=== PATIENT | male | born 1940 | race Caucasian/White ===

== ENCOUNTER 2017-04-27 06:13 | Inpatient (IN) | payer OTHER ==
[2017-04-18 15:35] VITALS: BMI 27.1
[~2017-04-27 06:13] MED LIST: PANTOPRAZOLE 40 MG TABLET (FP) PO ONE
[2017-04-27] MEDS ORDERED: GABAPENTIN 300 MG CAPSULE (FP) PO ONE (06:34)
[2017-04-27] MEDS ORDERED: CELECOXIB 200 MG CAPSULE PO ONE (06:34)
[2017-04-27] MEDS ORDERED: CEFAZOLIN 1 GM/D5W 50 ML IVPB ONE (06:34)
[2017-04-27] MEDS ORDERED: ROPIVICAINE 0.2%/MORPH PF/KETOROLAC - 51ML DISP.SYRINGE IA ONE ×2 (06:34→07:16)
[2017-04-27] MEDS ORDERED: oxyCODONE HCL 10 MG SUSTAINED ACTING TABLET PO ONE (06:34)
[2017-04-27] MEDS ORDERED: TRANEXAMIC ACID 1000 MG/10 ML VIAL IVPUSH ONE (06:34)
[2017-04-27] MEDS ORDERED: SODIUM CHLORIDE 0.9% P/F 10 ML VIAL IJ ONE (06:37)
[2017-04-27] MEDS ORDERED: DEXAMETHASONE SOD PHOSPHATE/PF 10 MG/ML SDV ONE (06:37)
[2017-04-27] MEDS ORDERED: MIDAZOLAM HCL 2 MG/2 ML SINGLE DOSE VIAL ONE ×2 (06:37→11:15)
[2017-04-27] MEDS ORDERED: PANTOPRAZOLE 40 MG TABLET (FP) ONE (06:38)
[2017-04-27] MEDS ORDERED: VANCOMYCIN 1,000 MG VIAL (RESTRICTED TO ID ONLY) ONE (07:15)
[2017-04-27] MEDS ORDERED: TRANEXAMIC ACID 1000 MG/10 ML VIAL ONE ×3 (07:15→11:45)
[2017-04-27] MEDS ORDERED: ceFAZolin SODIUM 1 GM VIAL ONE (07:15)
--- NOTE | 2017-04-27 07:49 | HP ---
Admitting History and Physical - Admission Chief Complaint: left knee osteoarthritis x years History of Present Illness: 77 year old male presents in regard to his left knee. Longstanding history of left knee osteoarthtitis. Patient complains of pain, limited ROM, difficulty ambulating and difficulty with ADLs. Patient has failed conservative treatment including PO medication, activity modification, injections and exercise program. At this point patient would like to proceed with a left total knee arthroplasty. History Source: Patient - Past Medical History Cardiovascular: Yes: HTN Psych: Yes: Bipolar - Past Surgical History Additional Past Surgical History: See written H&P - Advance Directives Advance Directives: Yes: Health Care Proxy - Smoking History Smoking history: Former smoker Have you smoked in the past 12 months: No - Alcohol/Substance Use Hx Alcohol Use: Yes (one drink daily) Home Medications - Allergies Allergies/Adverse Reactions: Allergies Allergy/AdvReac Type Severity Reaction Status Date / Time No Known Drug Allergies Allergy Verified 04/18/17 15:25 - Home Medications Home Medications: Ambulatory Orders Amlodipine Besylate [Norvasc -] 10 mg PO DAILY 03/28/16 Hydrochlorothiazide [Hctz -] 25 mg PO DAILY 03/28/16 [place] Carbonate [Eskalith -] 900 mg PO HS 03/28/16 Quinapril HCl [Accupril] 40 mg PO BID 03/28/16 Centrum Chewable Tablet 1 each PO DAILY 04/18/17 Cholecalciferol (Vitamin D3) [Vitamin D3 -] 1,000 unit PO DAILY 04/18/17 Lutein 20 mg PO DAILY 04/18/17 Review of Systems - Review of Systems Musculoskeletal: reports: Crepitus (Left knee), Decreased ROM (Left knee), Joint Pain (Left knee), Joint Swelling (Left knee) Physical Examination Vital Signs: Vital Signs Temperature 97.8 F 04/27/17 07:08 Pulse Rate 65 04/27/17 07:08 Respiratory Rate 18 04/27/17 07:08 Blood Pressure 122/59 04/27/17 07:08 O2 Sat by Pulse Oximetry (%) 97 04/27/17 06:58 Constitutional: Yes: Well Nourished, No Distress Eyes: Yes: Conjunctiva Clear HENT: Yes: Atraumatic, Normocephalic Neck: Yes: Supple Cardiovascular: Yes: Regular Rate and Rhythm Respiratory: Yes: Regular Gastrointestinal: Yes: Soft ...Rectal Exam: Yes: Deferred Musculoskeletal: Yes: Joint Stiffness (Left knee), Joint Swelling (Left knee) Assessment/Plan 77 year old male presents in regard to his left knee. Longstanding left knee osteoarthritis. Patient has failed all conservative treatment measures. Proceed with a left total knee arthroplasty.
[2017-04-27] MEDS ORDERED: DEXAMETHASONE SOD PHOSPHATE 4 MG/1 ML VIAL ONE ×3 (09:09→09:10)
[2017-04-27] MEDS ORDERED: PROPOFOL 20 ML ONE (11:20)
--- NOTE | 2017-04-27 12:21 | OP ---
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
[2017-04-27] MEDS ORDERED: MAGNESIUM HYDROX 2400MG/30ML ORAL SUSPENSION 30 ML CUP PO PRN (12:26)
[2017-04-27] MEDS ORDERED: MAG HYDROX/AL HYDROX/SIMETH 30 ML UNIT-DOSE CUP PO PRN (12:26)
[2017-04-27] MEDS ORDERED: ONDANSETRON 4 MG/2 ML VIAL IVPB PRN (12:26)
[2017-04-27] MEDS ORDERED: oxyCODONE HCL 5 MG TABLET PO PRN ×2 (12:29)
[2017-04-27] MEDS ORDERED: LACTATED RINGERS SOLUTION 1,000 ML IV SCH (12:30)
[2017-04-27] MEDS ORDERED: ACETAMINOPHEN 1000 MG/100 ML VIAL (NON FORMULARY) IVPB ONE (12:32)
[2017-04-27] MEDS: KETOROLAC TROMETHAMINE 30 MG/1 ML VIAL IVPUSH SCH ×2 (12:38→17:56)
[2017-04-27] MEDS: traMADol HCL 50 MG TABLET PO SCH ×2 (12:39→17:56)
[2017-04-27] MEDS: CEFAZOLIN 2 GM/D5W 50 ML IVPB SCH (17:57)
[2017-04-27] MEDS ORDERED: DEXAMETHASONE SOD PHOSPHATE 10 MG/1 ML VIAL IVPB ONE (20:00)
[2017-04-27] MEDS ORDERED: PT OWN MED DRAWER 7, Y5N ONE (21:10)
[2017-04-27] MEDS: LITHIUM CARBONATE 300 MG CAPSULE (FP) PO SCH (21:26)
[2017-04-27] MEDS: oxyCODONE HCL 10 MG SUSTAINED ACTING TABLET PO SCH (21:27)
[2017-04-27] MEDS: SENNOSIDES/DOCUSATE COMBO (SENNA PLUS) TABLET (UD) PO SCH (21:27)
[2017-04-27] MEDS: ASCORBIC ACID 500 MG TABLET (FP) PO SCH (21:27)
[2017-04-27] MEDS: GABAPENTIN 300 MG CAPSULE (FP) PO SCH (21:27)
[2017-04-27] MEDS: CELECOXIB 200 MG CAPSULE PO SCH (21:27)
[2017-04-27] MEDS: ACETAMINOPHEN 325 MG TABLET (FP) PO SCH (21:28)
[2017-04-27] MEDS: QUINAPRIL HCL 20 MG TABLET (FP) PO SCH (21:28)
[2017-04-27] MEDS ORDERED: LITHIUM CARBONATE PO SCH (22:00)
[2017-04-27] MEDS ORDERED: QUINAPRIL HCL 40 MG TABLET (FP) PO SCH (22:00)
[2017-04-28] MEDS: traMADol HCL 50 MG TABLET PO SCH ×4 (00:29→18:09)
[2017-04-28] MEDS: KETOROLAC TROMETHAMINE 30 MG/1 ML VIAL IVPUSH SCH ×2 (00:30→06:01)
[2017-04-28] MEDS: ACETAMINOPHEN 325 MG TABLET (FP) PO SCH ×4 (01:27→21:24)
[2017-04-28] MEDS: CEFAZOLIN 2 GM/D5W 50 ML IVPB SCH (01:28)
[2017-04-28 07:35] LABS: MCHC 35.5 g/dl (32.0-35.9); MEAN CELL VOLUME 92.9 fl (80-96); MEAN PLT VOLUME 8.2 fl (7.5-11.1); PLATELET COUNT 213 K/MM3 (134-434); RDW 12.5 % (11.9-15.9); WHITE BLOOD COUNT 11.8 K/mm3 (4.0-10.8)
[2017-04-28 07:48] LABS: ANION GAP 7 (8-16); CALCIUM 9.3 mg/dl (8.4-10.2); CO2 22 mmol/L (22-28); GLUCOSE,RANDOM 170 mg/dl (74-106)
[2017-04-28] MEDS: ASPIRIN 325 MG TABLET PO SCH (07:53)
[2017-04-28] MEDS: QUINAPRIL HCL 20 MG TABLET (FP) PO SCH ×2 (09:56→21:23)
[2017-04-28] MEDS: MULTIVITAMINS (DAILY MVI) TABLET (FP) PO SCH (09:56)
[2017-04-28] MEDS: GABAPENTIN 300 MG CAPSULE (FP) PO SCH ×2 (09:56→21:23)
[2017-04-28] MEDS: HYDROCHLOROTHIAZIDE 25 MG TABLET (FP) PO SCH (09:56)
[2017-04-28] MEDS: ASCORBIC ACID 500 MG TABLET (FP) PO SCH ×2 (09:56→21:23)
[2017-04-28] MEDS: amLODIPine BESYLATE 10 MG TABLET (FP) PO SCH (09:56)
[2017-04-28] MEDS: oxyCODONE HCL 10 MG SUSTAINED ACTING TABLET PO SCH ×2 (09:57→21:25)
[2017-04-28] MEDS: SENNOSIDES/DOCUSATE COMBO (SENNA PLUS) TABLET (UD) PO SCH ×2 (09:57→21:23)
[2017-04-28] MEDS: CELECOXIB 200 MG CAPSULE PO SCH ×2 (09:57→21:24)
[2017-04-28] MEDS: PANTOPRAZOLE 40 MG TABLET (FP) PO SCH (09:58)
--- NOTE | 2017-04-28 10:38 | PN ---
Progress Note (short form) - Note Progress Note: S: Pt. doing well. denies pain O: VAS 2/10 A/P: POD#1 s/p left tkr 1. continue pain meds as ordered 2. no apparent anesthetic complications
--- NOTE | 2017-04-28 18:43 | PN ---
Progress Note (short form) - Note Progress Note: Pt seen and examined this morning. Doing very well. No significant pain. AVSS Selected Entries 04/28/17 14:02 Temperature 98.2 F Pulse Rate 65 Respiratory 16 Rate Blood Pressure 126/50 O2 Sat by Pulse 95 Oximetry (%) Laboratory Tests 04/28/17 04/28/17 07:00 07:00 WBC 11.8 H Hgb 12.7 Hct 35.8 Plt Count 213 Sodium 135 L Potassium 4.2 Chloride 106 Carbon Dioxide 22 Anion Gap 7 L BUN 22 H Creatinine 1.0 Random Glucose 170 H Calcium 9.3 Gen: NAD LLE: c/d/i, NVID A/P 77yo male POD#1 s/p left TKA 1. Pt/OOB - WBAT LLE 2. D/C to rehab/SNF tomorrow morning; f/u in office in 10-14 days
--- NOTE | 2017-04-28 19:21 | DS ---
Physical Examination Vital Signs: Vital Signs Temperature 98.2 F 04/28/17 14:02 Pulse Rate 65 04/28/17 14:02 Respiratory Rate 16 04/28/17 14:02 Blood Pressure 126/50 04/28/17 14:02 O2 Sat by Pulse Oximetry (%) 95 04/28/17 14:02 Labs: CBC, BMP 04/28/17 07:00 04/28/17 07:00 Discharge Summary Reason For Visit: LEFT KNEE OSTEOARTHRITIS Current Active Problems Osteoarthritis of left knee (Acute) Procedures: Principal: left TKA and subtotal synevectomy Hospital Course: Admitted for elective surgery. Procedure performed without complications. Pt received postoperative antibiotic prophylaxis and DVT ppx. Ambulated with physical therapy. Stable for discharge home with outpatient followup. Condition: Stable - Instructions Diet, Activity, Other Instructions: Dr. Christensen - Knee Replacement Instructions Keep the Aquacel dressing on until removed by Dr. Christensen in 10-14 days - it is antibacterial and waterproof and you can shower with it on. DO NOT REMOVE THE AQUACEL DRESSING AT REHAB FACILITY WITHOUT CONTACTING DR. CHRISTENSEN FIRST Call the office for a follow-up appointment with Dr. Christensen in 10-14 days. [phone] Take one Aspirin 325mg daily for 6 weeks to prevent blood clots in your legs. Take one Pantoprazole 40mg daily for 6 weeks to protect against heartburn and ulcers. Take Celebrex 200mg once daily for 30 days to reduce swelling and inflammation. Take a multivitamin, additional vitamin C supplement, and stool softener daily. For pain: *Mild pain (1-3/10): Take 1 Tramadol tablet every 4 hours as needed. Moderate pain (4-6/10): Take 1 Tramadol tablet and 1 Percocet tablet every 4 hours as needed. Severe pain (7-10/10): Take 1 Tramadol tablet and 2 Percocet tablets every 4 hours as needed. Activity: You can put as much weight on the operative leg as you want. At the rehab facility, there will be physical therapists helping you walk around and doign range of motion exercises for your knee. After your follow-up appointment, you will be sent for more intensive outpatient physical therapy which will include machines and equipment that a home therapist cannot bring to your house. Always use a walker or cane for balance and to prevent falls. Disposition: [facility] - Home Medications Comprehensive Discharge Medication List: Ambulatory Orders Amlodipine Besylate [Norvasc -] 10 mg PO DAILY 03/28/16 Hydrochlorothiazide [Hctz -] 25 mg PO DAILY 03/28/16 [place] Carbonate [Eskalith -] 900 mg PO HS 03/28/16 Quinapril HCl [Accupril -] 40 mg PO BID 03/28/16 Centrum Chewable Tablet 1 each PO DAILY 04/18/17 Cholecalciferol (Vitamin D3) [Vitamin D3 -] 1,000 unit PO DAILY 04/18/17 Lutein 20 mg PO DAILY 04/18/17 Ascorbic Acid [Vitamin C -] 500 mg PO BID tablet 04/28/17 Aspirin [ASA -] 325 mg PO DAILY@0800 tablet 04/28/17 Celecoxib [CeleBREX -] 200 mg PO DAILY #30 tab 04/28/17 Multivitamins [Multivit ([facility] Formul[facility])] 1 tab PO DAILY tab 04/28/17 Oxycodone HCl/Acetaminophen [Percocet 5-325 mg Tablet] 1 - 2 tab PO Q4H PRN #60 tablet MDD 8 04/28/17 Pantoprazole Sodium [Protonix -] 40 mg PO DAILY #40 tab 04/28/17 Sennosides/Docusate Sodium [Pericolace -] 2 tablet PO BID tablet 04/28/17 Tramadol HCl [Ultram -] 50 mg PO Q4H PRN #90 tablet MDD 6 04/28/17
[2017-04-28] MEDS ORDERED: PT OWN MED DRAWER 7, Y5N ONE (21:13)
[2017-04-28] MEDS: LITHIUM CARBONATE 300 MG CAPSULE (FP) PO SCH (21:23)
[2017-04-29] MEDS: traMADol HCL 50 MG TABLET PO SCH ×2 (00:06→06:37)
[2017-04-29] MEDS: ACETAMINOPHEN 325 MG TABLET (FP) PO SCH ×2 (02:39→08:10)
[2017-04-29 06:53] VITALS: BP 135/66; PULSE 65; TEMP 98
[2017-04-29 07:52] LABS: MCH 32.2 pg (25.7-33.7); MCHC 33.8 g/dl (32.0-35.9); MEAN CELL VOLUME 95.3 fl (80-96); MEAN PLT VOLUME 8.4 fl (7.5-11.1); PLATELET COUNT 202 K/MM3 (134-434); RDW 12.8 % (11.9-15.9); WHITE BLOOD COUNT 10.9 K/mm3 (4.0-10.8)
[2017-04-29] MEDS: ASPIRIN 325 MG TABLET PO SCH (08:00)
[2017-04-29 08:06] LABS: ANION GAP 6 (8-16); CALCIUM 9.3 mg/dl (8.4-10.2); CO2 25 mmol/L (22-28); CREATININE 0.9 mg/dl (0.6-1.3); GLUCOSE,RANDOM 87 mg/dl (74-106)
[2017-04-29] MEDS: CELECOXIB 200 MG CAPSULE PO SCH (09:40)
[2017-04-29] MEDS: QUINAPRIL HCL 20 MG TABLET (FP) PO SCH (09:40)
[2017-04-29] MEDS: GABAPENTIN 300 MG CAPSULE (FP) PO SCH (09:41)
[2017-04-29] MEDS: SENNOSIDES/DOCUSATE COMBO (SENNA PLUS) TABLET (UD) PO SCH (09:41)
[2017-04-29] MEDS: amLODIPine BESYLATE 10 MG TABLET (FP) PO SCH (09:41)
[2017-04-29] MEDS: HYDROCHLOROTHIAZIDE 25 MG TABLET (FP) PO SCH (09:41)
[2017-04-29] MEDS: MULTIVITAMINS (DAILY MVI) TABLET (FP) PO SCH (09:41)
[2017-04-29] MEDS: oxyCODONE HCL 10 MG SUSTAINED ACTING TABLET PO SCH (09:42)
[2017-04-29] MEDS: PANTOPRAZOLE 40 MG TABLET (FP) PO SCH (09:42)
[2017-04-29] MEDS: ASCORBIC ACID 500 MG TABLET (FP) PO SCH (09:42)
--- NOTE | 2017-05-02 11:10 | SPEC ---
DATE OF OPERATION: 04/27/2017 PREOPERATIVE DIAGNOSIS: Left knee osteoarthritis. 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 PROCEDURE: Left total knee replacement and subtotal synovectomy. ATTENDING: Noe Christensen MD HOSPICE CARE TRANSITIONS COORDINATOR: SULTANA Salinas ANESTHESIA: Spinal plus sedation. ESTIMATED BLOOD LOSS: 100 mL. COMPLICATIONS: None. SPECIMENS: Resected bone and synovial tissue which appeared like PVNS were sent for pathology analysis. DISPOSITION: The patient was transferred to the PACU in stable condition. IMPLANTS USED: [employer] Tri[employer]lon size 5 femoral and tibial components, a 13-mm posterior stabilized polyethylene component, 35-mm patellar component. INDICATIONS: This is a 77-year-old male who presented to the office complaining of severe left knee pain. He was seen and examined by Dr. Christensen and diagnosed with left knee osteoarthritis. The patient was initially managed with nonoperative measures such as injections, medications, and physical therapy, but continued to have severe pain and ambulatory dysfunction. He was then indicated for a left total knee replacement. The risks, benefits, and alternatives to the procedure were explained to the patient in great detail, and he elected to proceed with the surgery. DESCRIPTION OF PROCEDURE: On the day of surgery, the patient was taken to the operating room and placed on the OR table. Spinal anesthesia was administered by the anesthesiologist. The patient was then positioned supine on the table and all bony prominences were padded. A nonsterile tourniquet was placed on the proximal thigh. The knee was then prepped and draped in the usual sterile fashion and intravenous antibiotics were given for infection prophylaxis. A surgical time-out was then performed with the team, and the patients identity, procedure, side, availability of implants, and the administration of antibiotics was confirmed. The leg was then elevated and exsanguinated, and the tourniquet was inflated. With the knee flexed, a midline incision was made and carried down through the subcutaneous fat to the underlying retinaculum. A medial parapatellar arthrotomy was performed. This was followed by a subperiosteal dissection of the tissue off the proximal, medial tibia. A portion of fat pad was removed from under the patellar tendon, and a small portion of fat was excised off the distal supracondylar femur. The knee was then flexed further and the anterior horn of the lateral meniscus was released from the midline. Next, the anterior and posterior cruciate ligaments were transected. Osteophytes were removed from both the femur and tibia. Grade 4 changes were noted diffusely throughout the knee. Hohmann retractors were then placed around the distal femur. The starting drill was used to enter the intramedullary canal. The starting point had been chosen by checking the radiographs and anatomy. Proper alignment and intramedullary placement was then confirmed by placing the long narrow nan into the femur. Next, the distal femoral cutting guide was adjusted to 6 degrees of valgus and pinned to the femur. The bone resection was assessed using an connie-wing. An approximately 10mm distal cut was made and the cut pieces measured. Once this was complete, the sizing guide was used to determine which size femoral component should be used. Next, the appropriately sized 4-in-1 cutting block was then placed at the correct amount of external rotation and the connie wing was used to assure that there would be no notching of the anterior cortex of the femur. Once this was done, Hohmann retractors were used to protect the medial and lateral collateral ligaments, and all appropriate bone cuts were made. Attention was then turned to the tibia. Hohmann retractors were used to translate the tibia anteriorly and protect the collateral ligaments. The medial and lateral menisci were removed. The extramedullary tibial alignment guide was then placed and adjusted for rotation, varus/valgus, and slope. The height of the cutting block was adjusted to the level of the desired bone resection and then pinned in place. The proximal tibia was then cut with a saw and the bone was removed and measured. Once this was completed, trial components were placed and the knee was taken through a full range of motion. Soft tissue balance was assessed in both flexion and extension and found to be appropriate. The knee was stable throughout the full range of motion. The knee was then put into extension and the patella everted. The synovium around the patella was circumscribed with electrocautery. A caliper was used to measure the patellar thickness and a saw was then used to resect the patella at the chondro-osseous junction. The cut surface was then sized and drilled for the appropriate patellar button, with care taken to medialize it. A trial patella was then placed and the knee was again taken through a full range of motion. The knee was found to have both good balance and good patellar tracking. All of the components were removed except the tibial base plate. The appropriate instrumentation was used to drill and punch the proximal tibia for the keel of the final component. All bony surfaces were then cleaned with pulsatile lavage and dried. Bone cement was then prepared on the back table, and final components were cemented in place in the usual fashion. Extruded cement was removed. The polyethylene trial was placed, the knee was put into extension, and axial pressure was applied for compression while the cement hardened. The patellar button was similarly cemented into place. Once the cement had hardened, the knee was taken through a full range of motion to assess stability, balance, and patellar tracking. This was found to be optimal and the trial polyethylene was exchanged for the appropriately sized real implant. The wound was then thoroughly irrigated with normal saline. No. 1 Polysorb and 0 VLoc 180 barbed sutures were used to close the arthrotomy. No. 1 Polysorb and 2-0 Polysorb sutures were used in the subcutaneous tissues. The skin was closed using both 3-0 VLoc 90 suture in a running subcuticular fashion and SwiftSet skin adhesive. Once this was completed a sterile Aquacel dressing and compressive Garth-wrap was applied. The tourniquet was then deflated and the patient was awakened and taken to the PACU in stable condition. ADDENDUM NUMBER 1: After the arthrotomy, we found very hypertrophic/hyperplastic synovial tissue lining the entire joint cavity and also extending into some of the subcutaneous tissues. This overgrowth of tissue appeared to be very inflamed and had findings suggestive of PVNS. This was resected and sent for pathology analysis. Overall, a subtotal synovectomy was performed in all compartments of the knee as well as the suprapatellar space. ADDENDUM NUMBER 2: After final components were placed, a 3-minute dilute Betadine lavage was performed according to the [facility] protocol. Following this, the wound was thoroughly irrigated with normal saline via pulsatile lavage, and wound closure was begun. NOE CHRSITENSEN M.D. VALENTINO/[id number]
--- NOTE | 2017-05-03 15:43 | PATH ---
Surgical Pathology Report Patient Name: ADDIE OSEGUERA Med. Rec. #: [id number] /Age/Gender: 1940 (Age: 77) / M Account: [id number] Location: [facility] MED-SURG Taken: 04/27/2017 Received: 04/27/2017 Reported: 05/03/2017 Physicians: Grayson Lopez M.D. Specimen(s) Received A: LEFT KNEE SYNOVIAL TISSUE B: BONE LEFT KNEE Clinical History Left knee osteoarthritis Final Diagnosis A. SYNOVITIS TISSUE, LEFT KNEE, EXCISION: CARTILAGE AND FIBROSYNOVIAL TISSUE SHOWING NODULAR AGGREGATES OF CRYSTALLINE MATERIAL, CONSISTENT WITH CHONDROCALCINOSIS (PSEUDOGOUT). B. BONE, LEFT KNEE, TOTAL KNEE REPLACEMENT: DEGENERATIVE JOINT DISEASE. Electronically Signed Charu Strickland M.D. Gross Description A. Received in formalin labeled "left knee synovial tissue," is a 9.0 x 7.5 x 3.0 cm aggregate of hnison-yellow soft tissue fragments, consistent with synovial tissue. Marketing Senior Recruiter sections are submitted in 2 cassettes. B. Received in formalin labeled "bone left knee," is an 11.5 x 9.5 x 1.8 cm aggregate of multiple hinson, irregular portions of bone and soft tissue. The tibial plateau measures 7.7 x 5.5 x 1.8 cm. There are multiple areas of eburnation present, measuring up to 4.5 cm in greatest dimension. The remaining articular surfaces are hinson-yellow and focally granular. The underlying trabecular bone is yellow and hard. Marketing Senior Recruiter sections are submitted in one cassette, following decalcification. 04/28/201704/28/2017
== END 2017-04-29 10:32 | DRG 470 ==
LOC: FM/S 06:13
PROVIDERS: ADMIT Student in an Organized Health Care Education/Training Program; ATTEND Student in an Organized Health Care Education/Training Program
PROC: 0SBD0ZZ Excision of Left Knee Joint, Open Approach (ICD-10-PCS; 2017-04-27)
PROC: 0SRD0J9 Replacement of Left Knee Joint with Synthetic Substitute, Cemented, Open Approach (ICD-10-PCS; principal; 2017-04-27 09:15)
DX: M17.12 Unilateral primary osteoarthritis, left knee (principal); F31.89 Other bipolar disorder; I10 Essential (primary) hypertension; M12.262 Villonodular synovitis (pigmented), left knee; J44.9 Chronic obstructive pulmonary disease, unspecified; Z87.891 Personal history of nicotine dependence
CPT/HCPCS: 36415; 73560-TC-LT; 80048; 85027; 88304-TC; 88305-TC; 88311-TC; 94010; 94760; 97116-GP; 97162-GP

== ENCOUNTER 2018-07-21 19:54 | Inpatient (IN) | payer OTHER ==
--- NOTE | 2018-07-21 20:08 | PDOC ---
History of Present Illness - General Stated Complaint: WEAKNESS Time Seen by Provider: 07/21/18 20:02 - History of Present Illness Initial Comments: 07/21/18 20:04 78 yo M with h/o osteoarthritis, bipolar disorder who p/w fatigue. Pt. at bedside to assist in reports states that patient has become increasingly fatigued throughout the day, and more somnolent during the day. + Dry non productive cough x 3 weeks, and increased leg swelling/heaviness. Chronic BL lower extremity swelling x 1 1/2 years. and patient endorse increased forgetfulness, visual hallucinations x 3 weeks. Typically ambulates with cane without difficultly. Denies home lasix or O2 requirements. No recent travels, trauma, surgery. Denies SI, HI. Patient denies N/V, F/C, palpitations, hemoptysis, wheezing, PND, orthopnea, AGUILAR , vision change, CP, SOB, urinary complaints, abdominal pain, diarrhea, hematruia, BPR, constipation, lightheadedness, weakness, sensory changes. PMHx: as noted above. Denies h/o ACS/AK, stent placement, CABG. ROS: as noted SHx: Denies Etoh, tobacco, IVDA. Distant smoking history x 30+ years ago. Allergies: NKDA Past History - Past Medical History Allergies/Adverse Reactions: Allergies Allergy/AdvReac Type Severity Reaction Status Date / Time No Known Drug Allergies Allergy Verified 04/18/17 15:25 Home Medications: Ambulatory Orders Amlodipine Besylate [Norvasc -] 10 mg PO DAILY 03/28/16 Quinapril HCl [Accupril -] 40 mg PO BID 03/28/16 Finasteride 5 mg PO DAILY 07/21/18 Lamotrigine [Lamictal] 25 mg PO DAILY 07/21/18 Methimazole 5 mg PO DAILY 07/21/18 Tamsulosin HCl 0.4 mg PO DAILY 07/21/18 Anemia: No Asthma: No Cancer: No Cardiac Disorders: No CVA: No COPD: No CHF: No Dementia: No (SHORT TERM MEMORY LOSS) Diabetes: No GI Disorders: No Disorders: No HTN: Yes Hypercholesterolemia: No Liver Disease: No Seizures: No Thyroid Disease: No - Surgical History Abdominal Surgery: Yes (hernia repair) Appendectomy: No Cardiac Surgery: No Cholecystectomy: No Lung Surgery: No Neurologic Surgery: Yes (LAMINECTOMY X2) Orthopedic Surgery: No - Suicide/Smoking/Psychosocial Hx Smoking History: Former smoker Have you smoked in the past 12 months: No Hx Alcohol Use: Yes (one drink daily) Drug/Substance Use Hx: No Substance Use Type: Alcohol Hx Substance Use Treatment: No Review of Systems - Review of Systems Comments:: 07/21/18 20:14 GENERAL/CONSTITUTIONAL:+ Fatigue. No fever or chills. No weakness. HEAD, EYES, EARS, NOSE AND THROAT: No change in vision. No ear pain or discharge. No sore throat. CARDIOVASCULAR: No chest pain or shortness of breath RESPIRATORY: + cough. No wheezing, or hemoptysis. GASTROINTESTINAL: No nausea, vomiting, diarrhea or constipation. GENITOURINARY: No dysuria, frequency, or change in urination. MUSCULOSKELETAL: No joint or muscle swelling or pain. No neck or back pain. SKIN: No rash NEUROLOGIC: No headache, vertigo, loss of consciousness, or change in strength/ sensation. ENDOCRINE: No increased thirst. No abnormal weight change HEMATOLOGIC/LYMPHATIC: No anemia, easy bleeding, or history of blood clots. ALLERGIC/IMMUNOLOGIC: No hives or skin allergy. *Physical Exam - Physical Exam Comments: 07/21/18 20:14 GENERAL: Awake, alert, and fully oriented, in no acute distress HEAD: No signs of trauma, normocephalic, atraumatic EYES: PERRLA, EOMI, sclera anicteric, conjunctiva clear ENT: Auricles normal inspection, hearing grossly normal, nares patent, oropharynx clear without exudates. Moist mucosa NECK: Normal ROM, supple, no lymphadenopathy, JVD, or masses LUNGS: No distress, speaks full sentences, clear to auscultation bilaterally HEART: Regular rate and rhythm, normal S1 and S2, no murmurs, rubs or gallops, peripheral pulses normal and equal bilaterally. ABDOMEN: Soft, nontender, normoactive bowel sounds. No guarding, no rebound. No masses. Neg CVA ttp. EXTREMITIES : 3+ pitting edema BL LE. Normal inspection, Normal range of motion , no edema. No clubbing or cyanosis. NEUROLOGICAL: Cranial nerves II through XII grossly intact. Normal speech, no focal sensorimotor deficits. SKIN: Warm, Dry, normal turgor, no rashes or lesions noted ED Treatment Course - LABORATORY CBC & Chemistry Diagram: 07/21/18 20:19 07/21/18 20:19 Medical Decision Making - Medical Decision Making 07/21/18 20:16 78 yo M with h/o osteoarthritis, bipolar disorder who p/w fatigue. BP 147/77, HR 98, vitals otheriwse wnl, AF, A&Ox3. 4+ Pitting edema BL LE. ACS/AK r/o. R/o PNA. Will consider CHF, DVT. Low risk PE Weils criteria. Low suspicion of massive iliofemoral occlusion/clot burden. Assess for electrolyte abnml, cardiac dysarrythmias, hypovolemia, hypoglycemia, thyroid dysfunction, metabolic and toxic derangements, acid-base disturbances, infection. Ed Course: CBC,CMP, TSH, Cardiac Pr. BNP, UA EKG, CXR, CTH 07/21/18 20:42 EKG: NSR with Q waves III, AvF. Rate 66. Asbent acute MARCO A, STD. Nml [place]. Poor R wave progression. 07/21/18 21:24 CBC,CMP: Unremarkable Trop: Neg 07/21/18 22:19 CKMB 10.6 CKI 2.8 07/21/18 22:20 CXR: Unremarkable on preliminary read ED 07/21/18 22:28 CTH: No acute changes, Chronic vascular changes. Admitted tele/obs endorsed to Dr. Castro. Admit to [facility] *DC/Admit/Observation/Transfer Diagnosis at time of Disposition: Elevated CK-MB level Fatigue Qualifiers: Fatigue type: unspecified Qualified Code(s): R53.83 - Other fatigue - Discharge Dispostion Decision to Admit order: Yes - Referrals Referrals: Dimitry Harvey MD [Primary Care Provider] - - Patient Instructions Additional Instructions: Please return to the emergency department with any new or worsening symptoms or concerns. Please follow up with your primary care physician within 72 hours. - Post Discharge Activity - Attestations Physician Attestion: 07/21/18 20:14 I attest to the information provided in this note.
[2018-07-21 20:41] LABS: BASO % 1.1 % (0-2.0); EOS % 3.2 % (0-4.5); HEMATOCRIT 39.2 % (35.4-49); HEMOGLOBIN 13.9 GM/dL (11.7-16.9); MCH 32.4 pg (25.7-33.7); MCHC 35.5 g/dl (32.0-35.9); MEAN CELL VOLUME 91.4 fl (80-96); MONO % 6.4 % (3.8-10.2); NEUT % 73.3 % (42.8-82.8); PLATELET COUNT 210 K/MM3 (134-434); RBC 4.29 M/mm3 (4.00-5.60); RDW 13.8 % (11.9-15.9); WHITE BLOOD COUNT 7.7 K/mm3 (4.0-10.0)
--- NOTE | 2018-07-21 20:43 | PDOC ---
Attending Attestation - HPI HPI: 07/21/18 20:52 The patient is a 78 year old male with a significant PMH of osteoarthritis and bipolar disorder who presents to the emergency department with increasing fatigue over the past few days. Patients is at bedside and stating the patient has been more sleepy during the daytime. Patient is also complaining of a dry nonproductive cough. Patient admits to having chronic swelling of the legs for the past year and a half. Patient is not on lasix and has no known history of CHF or any other cardiac history. Patients is also complaining of increased forgetfulness and visual hallucinations over the past 3 weeks. The patient denies chest pain, shortness of breath, headache and dizziness. Denies fever, chills, nausea, vomit, diarrhea and constipation. Denies dysuria, frequency, urgency and hematuria. Allergies: NKA Past surgical history: None reported. Social history: No reported alcohol, drug or cigarette use. <Mandy Ogden - Last Filed: 07/21/18 20:52> - Resident Resident Name: Luis Antonio Ramirez - ED Attending Attestation I have performed the following: I have examined & evaluated the patient, The case was reviewed & discussed with the resident, I agree w/resident's findings & plan - Physicial Exam PE: 07/21/18 22:16 Agree with resident exam. - Medical Decision Making 07/21/18 21:20 Pt's CBC, BNP, cardiac enzymes elevated CK is 340s; but trop is negative. Chem is pending CXR pending CT head pending 07/21/18 22:16 Chem is normal 07/21/18 22:18 CK-MB% is elevated, with an elevated CPK; he will be admitted to telelmetry observation under the hospitalists 07/21/18 22:58 Hospitalists do not want to admit the patient. We will get a second troponin in the ER and disposition at that time. <Елена Peck - Last Filed: 07/22/18 00:13> Heart Score/ECG Review - ECG Intrepretation Rhythm: PVC(s) - Parker Parker: Normal - P and VA Delta Wave(s) Present: No WPW: No - QRS Poor R Wave Progression: No Q Wave Present: No - ST and T Early Repolarization: No Non Specific ST-T Wave changes: No Flattened T Waves: No Prolonged Q-T Interval: No - ECG Impressions Normal ECG: Yes Non-specific ST Elevation: No Ischemic Changes: No Torsades karly Pointes: No WPW: No <Елена Peck - Last Filed: 07/22/18 00:13>
[2018-07-21 20:50] LABS: INR 1.05 (0.83-1.09); PROTHROMBIN TIME (PATIENT) 12.4 SEC (9.7-13.0)
[2018-07-21 21:22] LABS: ALBUMIN 4.4 g/dl (3.4-5.0); ALK PHOS 101 U/L (45-117); ANION GAP 8 MMOL/L (8-16); BILIRUBIN,TOTAL 0.5 mg/dL (0.2-1); BLOOD UREA NITROGEN 20 mg/dL (7-18); CALCIUM 9.3 mg/dL (8.5-10.1); CHLORIDE 105 mmol/L (98-107); CO2 27 mmol/L (21-32); CREATININE 0.7 mg/dL (0.55-1.3); GLUCOSE,RANDOM 103 mg/dL (74-106); POTASSIUM 4.4 mmol/L (3.5-5.1); SGOT/AST 38 U/L (15-37); SGPT/ALT 37 U/L (13-61); SODIUM 140 mmol/L (136-145); TOT PROT 7.2 g/dl (6.4-8.2)
--- NOTE | 2018-07-21 23:17 | PN ---
Teaching Attending Note Name of Resident: Sharad Castro ATTENDING PHYSICIAN STATEMENT I saw and evaluated the patient. I reviewed the resident's note and discussed the case with the resident. I agree with the resident's findings and plan as documented. SUBJECTIVE: Patient is a 78 year old man with history of debilitating osteoarthritis, cerebral palsy, left knee replacement and bipolar disorder who presents with increasing fatigue, gait abnormality, forgetfulness and hallucinations for several weeks. He also mumbles to himself and was started on Lamictal by a psychiatrist 2 weeks ago. His , who sounds very frustrated denies any acute symptoms, but rather that he has been declining gradually. He has chronic leg edema and HCTZ was stopped along with [place] about 1 year ago. He does not have a diagnosis of CHF. states that patient has become increasingly fatigued throughout the day, and more somnolent during the day. + Dry non productive cough for 3 weeks, and increased leg swelling/heaviness. and patient endorse increased forgetfulness, visual hallucinations for 3 weeks. Typically ambulates with cane without difficultly. Fell down recently and the emphasizes that he is a fall risk. No recent travels, trauma, surgery. Denies SI, HI. He denies N/V, PND , orthopnea, CP, SOB, urinary complaints or diarrhea. He says his appetite is very good. OBJECTIVE: Alert, weak and slow Vital Signs Period Temp Pulse Resp BP Sys/Braxton Pulse Ox Last 24 Hr 98.5 F 98 19 144/77 100 HEENT: No Jaundice, eye redness or discharge, PERRLA, EOMI. Normocephalic, atraumatic. External ears are normal and hearing is grossly intact. No nasal discharge. Neck: Supple, nontender. No palpable adenopathy or thyromegaly. No JVD Chest: Good effort. Clear to auscultation and percussion. Heart: Regular. No S3, rub or murmur Abdomen: Not distended, soft, nontender and no HSM. No rebound or guarding. Normoactive bowel sounds. Ext: Peripheral pulses intact. Pitting leg edema. Skin: Warm and dry. No petechiae, rash or ecchymosis. Neuro: Alert. Oriented x3. Global weakness. CN 2-12 grossly intact. Sensation grossly intact in all four extremities and DTR are symmetric. Psych: Emotionally labile. Affect and insight are appropriate. Mood is okay. Denies suicidal or homicidal ideation. Home Medications Medication Instructions Recorded Amlodipine Besylate [Norvasc -] 10 mg PO DAILY 03/28/16 Quinapril HCl [Accupril -] 40 mg PO BID 03/28/16 Finasteride 5 mg PO DAILY 07/21/18 Lamotrigine [Lamictal] 25 mg PO DAILY 07/21/18 Methimazole 5 mg PO DAILY 07/21/18 Tamsulosin HCl 0.4 mg PO DAILY 07/21/18 Abnormal Lab Results 07/21/18 07/21/18 07/21/18 20:19 20:21 20:21 BUN 20 H AST 38 H Creatine Kinase 373 H CK-MB (CK-2) 10.6 H Ur Leukocyte Esterase 2+ H ASSESSMENT AND PLAN: 1. Failure to thrive - Several comorbid issues are contributing to his global debility including; a) Bipolar disorder/Gait instability. Lamictal alone may be insufficient for his bipolar disorder. [place] was stopped last year due to ?side effects. Will consult psychiatry. May also have early dementia. No acute pathology on noncontrast head CT. Will get brain MRI, carotid doppler and implement fall precautions. Consult PT and Neurology. Get more information from his PCP - ? unclear why he is on methimazole. b) CHF?/Leg edema/New onset Afib? - Troponin is negative. No significant pathology on CXR and EKG shows afib. Etiology of rhabdomyolysis is unclear. Will monitor on telemetry, trend CPK, get leg doppler, ECHO, Mg, Phosphate and urinalysis. Discontinue amlodipine; add metoprolol 25 mg bid, HCTZ 12.5 mg qd, restrict dietary salt intake, monitor daily weight, check TFT and fasting lipids. Will avoid aggressive diureses with IV lasix at this time since edema may be partly due to amlodipine. Cardiology input on whether to anticoagulate or not. 2. DVT prophylaxis - Lovenox 40 mg SQ q 24 hours. 3. Advance directives - Full code
[2018-07-21 23:21] LABS: URINE APPEARANCE SLCLOUDY; URINE BILIRUBIN NEGATIVE (<2.0 mg/dL); URINE COLOR YELLOW; URINE GLUCOSE (UA) NEGATIVE (NEGATIVE); URINE KETONE NEGATIVE (NEGATIVE); URINE LEUK ESTERASE 2+ (NEGATIVE); URINE NITRITE POSITIVE (NEGATIVE); URINE PROTEIN NEGATIVE (NEGATIVE); URINE UROBILINOGEN NEGATIVE mg/dL (0.2-1.0)
[2018-07-21 23:30] LABS: EPI CELLS RARE /HPF (FEW); URINE BACTERIA MODERATE /hpf (NONE SEEN); URINE MUCUS RARE
--- NOTE | 2018-07-21 23:50 | HP ---
CHIEF COMPLAINT: Confusion/Fatigue PCP: DR HUDSON HISTORY OF PRESENT ILLNESS: Pt is a 78 y/o gentleman with a significant past medical history of bipolar d/o , cerebral palsy, and osteoarthritis who presented to [facility] due to altered mental status, decreased energy, and increasing lower extremity edema. Per patient's spouse at bedside. pt has been much more confused and forgetful for the past 2-3 weeks. Spouse endorses that pt has been speaking to himself and unable to carry out everyday tasks. Upon questioning pt, he endorses that he has been hallucinating. Apparently, pt underwent a left knee operation in April of last year which was uneventful. Following operation, pt went to rehab ([facility] in [place], [place]) where he was taken off his [place] and HCTZ. After being taken off HCTZ, pt's legs began to swell per pt and spouse. Pt was recently started on lamictal by his psychiatrist 3 days ago. Pt denies chest pain, shortness of breath, headache, lightheadedness, or decreased PO intake. ER course was notable for: (1) CK-MB 10.6 (2) Creatine Kinase 373 (3) CT Head- No acute pathology. Recent Travel: PAST MEDICAL HISTORY: Per HPI PAST SURGICAL HISTORY: Left Knee Surgery Social History: Retired [employer] Smoking: Former Smoker Alcohol: Socially Drugs: Negative Family History: Allergies No Known Drug Allergies Allergy (Verified 04/18/17 15:25) HOME MEDICATIONS: Home Medications Medication Instructions Recorded Amlodipine Besylate [Norvasc -] 10 mg PO DAILY 03/28/16 Quinapril HCl [Accupril -] 40 mg PO BID 03/28/16 Finasteride 5 mg PO DAILY 07/21/18 Lamotrigine [Lamictal] 25 mg PO DAILY 07/21/18 Methimazole 5 mg PO DAILY 07/21/18 Tamsulosin HCl 0.4 mg PO DAILY 07/21/18 REVIEW OF SYSTEMS CONSTITUTIONAL: PRESENT: generalized weakness, malaise, HEENT: Absent: rhinorrhea, nasal congestion, throat pain, throat swelling, difficulty swallowing, mouth swelling, ear pain, eye pain, visual changes CARDIOVASCULAR: Absent: chest pain, syncope, palpitations, irregular heart rate, lightheadedness , peripheral edema RESPIRATORY: Absent: cough, shortness of breath, dyspnea with exertion, orthopnea, wheezing, stridor, hemoptysis GASTROINTESTINAL: Absent: abdominal pain, abdominal distension, nausea, vomiting, diarrhea, constipation, melena, hematochezia GENITOURINARY: Absent: dysuria, frequency, urgency, hesitancy, hematuria, flank pain, genital pain MUSCULOSKELETAL: Absent: myalgia, arthralgia, joint swelling, back pain, neck pain SKIN: Absent: rash, itching, pallor HEMATOLOGIC/IMMUNOLOGIC: Absent: easy bleeding, easy bruising, lymphadenopathy, frequent infections ENDOCRINE: Absent: unexplained weight gain, unexplained weight loss, heat intolerance, cold intolerance NEUROLOGIC: PRESENT: mental status changes PSYCHIATRIC: PRESENT: anxiety, depression, hallucinations. PHYSICAL EXAMINATION Vital Signs - 24 hr 07/21/18 20:05 Temperature 98.5 F Pulse Rate 98 H Respiratory 19 Rate Blood Pressure 144/77 O2 Sat by Pulse 100 Oximetry (%) GENERAL: Labile mood,. HEAD: Normal with no signs of trauma. EYES: EOMI Conjunctiva clear EARS, NOSE, THROAT: MMM NECK: Supple No JVD appreciated LUNGS: CTA B/L No Crackles rhonchi or rales appreciated HEART: Regular rate and rhythm, normal S1 and S2 without murmur, rub or gallop. ABDOMEN: NTND No Guarding or rigidity MUSCULOSKELETAL: Right side body decreased motor strength 2/2 cerebral palsy . UPPER EXTREMITIES:Right side body weakness 2/2 cerebral palsy LOWER EXTREMITIES: Right side weakness 2/2 cerebral palsy NEUROLOGICAL: Ambulates with walker. Speech coherent. Moves all extremities. SILT. Injury Middle toe left foot. PSYCHIATRIC: h/o bipolar d/o. SKIN: No rashes or lesions appreciated Laboratory Results - last 24 hr 07/21/18 07/21/18 07/21/18 20:19 20:19 20:19 WBC 7.7 RBC 4.29 Hgb 13.9 Hct 39.2 MCV 91.4 MCH 32.4 MCHC 35.5 RDW 13.8 Plt Count 210 MPV 9.0 Absolute Neuts (auto) 5.6 Neutrophils % 73.3 Lymphocytes % 16.0 Monocytes % 6.4 Eosinophils % 3.2 Basophils % 1.1 Nucleated RBC % 0 PT with INR 12.40 INR 1.05 Sodium 140 Potassium 4.4 Chloride 105 Carbon Dioxide 27 Anion Gap 8 BUN 20 H Creatinine 0.7 Creat Clearance w eGFR > 60 Random Glucose 103 Calcium 9.3 Total Bilirubin 0.5 AST 38 H ALT 37 Alkaline Phosphatase 101 Creatine Kinase Creatine Kinase Index CK-MB (CK-2) Troponin I B-Natriuretic Peptide Total Protein 7.2 Albumin 4.4 TSH Urine Color Urine Appearance Urine pH Ur Specific Cadet Urine Protein Urine Glucose (UA) Urine Ketones Urine Blood Urine Nitrite Urine Bilirubin Urine Urobilinogen Ur Leukocyte Esterase Urine WBC (Auto) Urine RBC (Auto) Ur Epithelial Cells Urine Bacteria Urine Mucus 07/21/18 07/21/18 07/21/18 20:21 20:21 20:21 WBC RBC Hgb Hct MCV MCH MCHC RDW Plt Count MPV Absolute Neuts (auto) Neutrophils % Lymphocytes % Monocytes % Eosinophils % Basophils % Nucleated RBC % PT with INR INR Sodium Potassium Chloride Carbon Dioxide Anion Gap BUN Creatinine Creat Clearance w eGFR Random Glucose Calcium Total Bilirubin AST ALT Alkaline Phosphatase Creatine Kinase 373 H Creatine Kinase Index 2.8 CK-MB (CK-2) 10.6 H Troponin I < 0.02 B-Natriuretic Peptide 106.2 Total Protein Albumin TSH Urine Color Yellow Urine Appearance Slcloudy Urine pH 5.0 Ur Specific Cadet 1.014 Urine Protein Negative Urine Glucose (UA) Negative Urine Ketones Negative Urine Blood Negative Urine Nitrite Positive Urine Bilirubin Negative Urine Urobilinogen Negative Ur Leukocyte Esterase 2+ H Urine WBC (Auto) 50 Urine RBC (Auto) <1 Ur Epithelial Cells Rare Urine Bacteria Moderate Urine Mucus Rare 07/21/18 22:32 WBC RBC Hgb Hct MCV MCH MCHC RDW Plt Count MPV Absolute Neuts (auto) Neutrophils % Lymphocytes % Monocytes % Eosinophils % Basophils % Nucleated RBC % PT with INR INR Sodium Potassium Chloride Carbon Dioxide Anion Gap BUN Creatinine Creat Clearance w eGFR Random Glucose Calcium Total Bilirubin AST ALT Alkaline Phosphatase Creatine Kinase Creatine Kinase Index CK-MB (CK-2) Troponin I B-Natriuretic Peptide Total Protein Albumin TSH 1.12 Urine Color Urine Appearance Urine pH Ur Specific Cadet Urine Protein Urine Glucose (UA) Urine Ketones Urine Blood Urine Nitrite Urine Bilirubin Urine Urobilinogen Ur Leukocyte Esterase Urine WBC (Auto) Urine RBC (Auto) Ur Epithelial Cells Urine Bacteria Urine Mucus ASSESSMENT/PLAN: Pt is a 78 y/o gentleman with a significant past medical history of bipolar d/o , cerebral palsy, and osteoarthritis who presented to [facility] due to altered mental status and increasing lower extremity edema. #Elevated CK-MB/CK -Monitor on tele -Trend CPK -Check Magnesium, phosphate, urinalysis # Bipolar disorder/New onset Dementia - Recent episodes of hallucinations. Has not been taking lithium medication since last year -Started on Lamictal few days ago. May be insufficient for his bipolar disorder. -Will consult Psychiatry, Neurology -CT Head W/O contrast--> No acute pathology. Moderate diffuse cortical atrophy. Chronic small vessel ischemic changes noted in the white matter. Prominence of the ventricles, left greater than right. - Brain MRI, -carotid doppler -fall precautions. -Physical therapy -Get more information from his PCP - unclear why he is on methimazole. #Lower extremity edema 2/2 CHF/New onset AFIB? - Troponin is negative. No significant pathology on CXR - EKG shows afib, a lot of artiifcant. Repeat EKG -On Amlodipine at home 10mg. Will stop. Start HCTZ 12.5 Daily. -Start Metoprolol 25 MG PO BID in light of new onset afib. Low Salt Diet. -Daily weights -Cardiology consult FEN No Fluids Monitor Electrolytes NA Controlled Diet #DVT PPX - Lovenox 40 mg SQ q 24 hours. Dispo: Tele Visit type - Emergency Visit Emergency Visit: Yes Care time: The patient presented to the Emergency Department on the above date and was hospitalized for further evaluation of their emergent condition. - New Patient This patient is new to me today: Yes Date on this admission: 07/22/18 - Critical Care Critical Care patient: No
[2018-07-22 01:32] LABS: ALBUMIN 3.7 g/dl (3.4-5.0); ALK PHOS 87 U/L (45-117); ANION GAP 10 MMOL/L (8-16); BILIRUBIN,TOTAL 0.7 mg/dL (0.2-1); BLOOD UREA NITROGEN 18 mg/dL (7-18); CALCIUM 8.6 mg/dL (8.5-10.1); CHLORIDE 107 mmol/L (98-107); CO2 24 mmol/L (21-32); CREATININE 0.5 mg/dL (0.55-1.3); GLUCOSE,RANDOM 77 mg/dL (74-106); POTASSIUM 3.5 mmol/L (3.5-5.1); SGOT/AST 24 U/L (15-37); SGPT/ALT 29 U/L (13-61); SODIUM 140 mmol/L (136-145)
[2018-07-22 05:56] LABS: BASO % 0.6 % (0-2.0); EOS % 3.5 % (0-4.5); HEMOGLOBIN 12.9 GM/dL (11.7-16.9); LYMPH % 19.6 % (8-40); MCH 30.9 pg (25.7-33.7); MCHC 33.8 g/dl (32.0-35.9); MEAN CELL VOLUME 91.3 fl (80-96); MEAN PLT VOLUME 8.1 fl (7.5-11.1); MONO % 7.4 % (3.8-10.2); NEUT % 68.9 % (42.8-82.8); PLATELET COUNT 180 K/MM3 (134-434); RBC 4.17 M/mm3 (4.00-5.60); RDW 13.5 % (11.9-15.9); WHITE BLOOD COUNT 6.7 K/mm3 (4.0-10.0)
[2018-07-22 06:32] LABS: INR 1.08 (0.83-1.09); PROTHROMBIN TIME (PATIENT) 12.7 SEC (9.7-13.0)
[2018-07-22 06:35] LABS: ACTIVATED PTT 31.2 SECONDS (25.2-36.5); CHOLESTEROL 126 mg/dL (50-200); HDL CHOLESTEROL 48 mg/dL (40-60); TRIGLYCERIDES 77 mg/dL (0-150)
[2018-07-22 06:41] LABS: ANION GAP 9 MMOL/L (8-16); BLOOD UREA NITROGEN 17 mg/dL (7-18); CALCIUM 8.8 mg/dL (8.5-10.1); CHLORIDE 108 mmol/L (98-107); CO2 25 mmol/L (21-32); CREATININE 0.6 mg/dL (0.55-1.3); GLUCOSE,RANDOM 88 mg/dL (74-106); PHOSPHOROUS 3.2 mg/dL (2.5-4.9); POTASSIUM 3.8 mmol/L (3.5-5.1); SODIUM 141 mmol/L (136-145)
--- NOTE | 2018-07-22 08:27 | CON.CARD ---
Consult Consult Specialty:: cardio - History of Present Illness Chief Complaint: fatigue History of Present Illness: 78 M here for fatigue/somnolence. notes he's been increasingly fatigued throughout the day, and more somnolent during the day. has known PERRI and uses cpap every night for 20 yrs he says (dr mohini leonard, [facility])--complying recently as well. admits to non productive cough and increased leg swelling/heaviness over baseline, though legs chronically swollen he says. reported to ER increased forgetfulness, visual hallucinations x 3 weeks. Typically ambulates with cane without difficultly. in ER: elevated cpk with normal troponin. ekg with artifact ? of afib--only given prophylactic dose lovenox presently: pt denies cp or sob. no palpitations, syncope denies h/o CV disease including chf PMH: PERRI HTN bipolar disorder chronic LE swelling - Past Medical History Cardio/Vascular: Yes: HTN Psych: Yes: Bipolar - Alcohol/Substance Use Hx Alcohol Use: Yes (one drink daily) - Smoking History Smoking history: Former smoker Have you smoked in the past 12 months: No Home Medications - Allergies Allergies/Adverse Reactions: Allergies Allergy/AdvReac Type Severity Reaction Status Date / Time No Known Drug Allergies Allergy Verified 04/18/17 15:25 - Home Medications Home Medications: Ambulatory Orders Amlodipine Besylate [Norvasc -] 10 mg PO DAILY 03/28/16 Quinapril HCl [Accupril -] 40 mg PO BID 03/28/16 Finasteride 5 mg PO DAILY 07/21/18 Lamotrigine [Lamictal] 25 mg PO DAILY 07/21/18 Methimazole 5 mg PO DAILY 07/21/18 Tamsulosin HCl 0.4 mg PO DAILY 07/21/18 Family Disease History - Family Disease History Family History: Denies (no known cmp) Review of Systems - Review of Systems Constitutional: denies: Chills, Fever Eyes: denies: Eye Pain HENT: denies: Nasal Congestion Neck: denies: Stiffness Cardiovascular: denies: Palpitations Respiratory: denies: Orthopnea, PND Gastrointestinal: denies: Diarrhea, Rectal Bleeding Genitourinary: denies: Burning, Hematuria Musculoskeletal: denies: Muscle Pain Integumentary: denies: Rash Neurological: denies: Numbness, Seizure, Syncope Endocrine: denies: Excessive Sweating Hematology/Lymphatic: denies: Excessive Bleeding Vital Signs: Vital Signs Temperature 98.5 F 07/22/18 06:57 Pulse Rate 89 07/22/18 06:57 Respiratory Rate 19 07/22/18 06:57 Blood Pressure 136/78 07/22/18 06:57 O2 Sat by Pulse Oximetry (%) 100 07/22/18 06:57 Constitutional: Yes: Well Nourished, No Distress Eyes: No: Sclera Icterus HENT: No: Nasal Congestion Neck: No: Decreased ROM Respiratory: Yes: CTA Bilaterally. No: Accessory Muscle Use, Rales, Wheezes Gastrointestinal: Yes: Normal Bowel Sounds. No: Distention, Hepatomegaly, Palpable Mass, Tenderness Cardiovascular: Yes: Regular Rate and Rhythm JVD: No Carotid Bruit: No PMI: Non-Displaced Heart Sounds: Yes: S1, S2. No: Gallop Murmur: No: Systolic Murmur, Diastolic Murmur Musculoskeletal: Yes: Other (No kyphosis) Extremities: No: Cold, Cyanosis Edema: Yes (1+ ankles) Peripheral Pulses: 2+ Left Carotid, 2+ Right Carotid, 2+ Left Doralis Pedis, 2+ Right Dorsalis Pedis Integumentary: No: Jaundice Neurological: Yes: Alert, Oriented (x3) Psychiatric: No: Agitated - Other Data Labs, Other Data: CBC, BMP 07/22/18 05:25 07/22/18 05:25 INR, PTT INR 1.08 (0.83-1.09) 07/22/18 05:25 Troponin, BNP 07/21/18 07/21/18 07/22/18 20:21 20:21 00:05 Troponin I < 0.02 < 0.02 B-Natriuretic Peptide 106.2 Troponin, BNP 07/21/18 07/21/18 07/22/18 20:21 20:21 00:05 Troponin I < 0.02 < 0.02 B-Natriuretic Peptide 106.2 Laboratory Tests 07/21/18 07/21/18 07/21/18 20:21 20:21 22:32 WBC Hgb Plt Count Sodium Potassium Carbon Dioxide BUN Creatinine Creatine Kinase 373 H Troponin I < 0.02 B-Natriuretic Peptide 106.2 Triglycerides Cholesterol Total LDL Cholesterol TSH 1.12 07/22/18 07/22/1818 00:05 05:25 05:25 WBC 6.7 Hgb 12.9 Plt Count 180 Sodium 141 Potassium 3.8 Carbon Dioxide 25 BUN 17 Creatinine 0.6 Creatine Kinase 272 Troponin I < 0.02 B-Natriuretic Peptide Triglycerides Cholesterol Total LDL Cholesterol TSH 07/22/18 05:25 WBC Hgb Plt Count Sodium Potassium Carbon Dioxide BUN Creatinine Creatine Kinase Troponin I B-Natriuretic Peptide Triglycerides 77 Cholesterol 126 Total LDL Cholesterol 63 TSH Assessment/Plan ECG #1: NSR with poor baseline (? tremor artifact). normal axis/intervals. no pathological q waves, no ST-T abn ECG #2: NSR with baseline wander artifact. normal intervals/axis. PVC. no pathol q waves. no ST-T abn. CXR: clear lungs/pleura bipolar disorder, incr fatigue/somnolence, visual hallucinations: -per psych, hospitalist LE swelling: -known h/o chronic edema -HCTZ stopped in rehab-->swelling increased -BNP normal, CXR clear. phys exam not c/w chf. -? side effect to high dose ccb (amlodipine)--would consider cutting dose to 2.5 -5 and titrating other bp meds. abnormal ECG (normal ECG with poor baseline): -no afib -no further cardiac w/u or mgmt indicated HTN: -was on HCTZ in past, resumed here -bp controlled -consider decrease/stop amlodipine to observe if edema responds. could try spironolactone or hydralazine instead. can be done as outpt with pt's PMD NO INDICATION FOR TELEMETRY MONITORING NO INDICATION FOR ECHO--D/C'D ORDER NO FURTHER INPATIENT CARDIAC EVALUATION INDICATED
[2018-07-22] MEDS: TAMSULOSIN HCL 0.4 MG CAP PO SCH (09:19)
[2018-07-22] MEDS ORDERED: TAMSULOSIN HCL 0.4 MG CAP ONE (09:21)
--- NOTE | 2018-07-22 09:22 | EKG ---
Test Reason : Blood Pressure : / mmHG Vent. Rate : 066 BPM Atrial Rate : 052 BPM P-R Int : 000 ms QRS Dur : 106 ms QT Int : 390 ms P-R-T Axes : 000 085 033 degrees QTc Int : 408 ms POOR DATA QUALITY, INTERPRETATION MAY BE ADVERSELY AFFECTED NORMAL SINUS RHYTHM apcs ABNORMAL ECG NO PREVIOUS ECGS AVAILABLE Confirmed by DVAID SNEED MD ([id number]) on 07/22/2018 9:22:12 AM Referred By: Confirmed By:DAVID SNEED MD
--- NOTE | 2018-07-22 09:24 | EKG ---
Test Reason : Blood Pressure : / mmHG Vent. Rate : 075 BPM Atrial Rate : 075 BPM P-R Int : 192 ms QRS Dur : 106 ms QT Int : 400 ms P-R-T Axes : 054 083 044 degrees QTc Int : 446 ms SINUS RHYTHM WITH OCCASIONAL PREMATURE VENTRICULAR COMPLEXES OTHERWISE NORMAL ECG NO PREVIOUS ECGS AVAILABLE Confirmed by DAVID SNEED MD ([id number]) on 07/22/2018 9:24:26 AM Referred By: Confirmed By:DAVID SNEED MD
[2018-07-22] MEDS ORDERED: lamoTRIgine 25 MG TABLET PO SCH (10:00)
[2018-07-22] MEDS ORDERED: DEXTROSE 5%-WATER - 50 ML IVPB ONE (11:07)
[2018-07-22] MEDS ORDERED: cefTRIAXone SODIUM 1 GM VIAL ONE (11:07)
[2018-07-22] MEDS: HYDROCHLOROTHIAZIDE 12.5 MG CAPSULE (FP) PO SCH (11:33)
[2018-07-22] MEDS: FINASTERIDE 5 MG TABLET (FP) PO SCH (11:33)
[2018-07-22] MEDS: metoPROLOL SUCCINATE 25 MG TAB.SR.24H (FP) PO SCH ×2 (11:34→22:08)
[2018-07-22] MEDS: METHIMAZOLE 5 MG TABLET (FP) PO SCH (11:34)
[2018-07-22] MEDS: CEFTRIAXONE 1 GM in DEXTROSE 5%-WATER - 50 ML IVPB SCH (11:34)
[2018-07-22] MEDS: ENOXAPARIN NA (PORCINE) 40 MG/0.4 ML DISP.SYRIN SQ SCH (11:35)
[2018-07-22 12:40] VITALS: BMI 25.8
--- NOTE | 2018-07-22 13:09 | PN ---
Physical Exam: SUBJECTIVE: Patient seen and examined, denies any pain or complaints, Reports leg swelling. OBJECTIVE: Vital Signs Period Temp Pulse Resp BP Sys/Braxton Pulse Ox Last 24 Hr 97.8 F-98.5 F 69-98 18-19 136-154/77-83 100-100 GENERAL: AAOx3, in no acute distress in bed Neck: soft,supple, no JVD Chest: CTAB, no rales or wheezing, good efort Abdomen:soft, ND, ND, positive bowel sounds Extremities; 1+ bilateral lower extermity non pitting edema Neuro : AAOx3, facial symmetry, RIght hemiparess from cerebral palsy, increased tone RUE/RLE Laboratory Results - last 24 hr 07/21/18 07/21/18 07/21/18 20:19 20:19 20:19 WBC 7.7 RBC 4.29 Hgb 13.9 Hct 39.2 MCV 91.4 MCH 32.4 MCHC 35.5 RDW 13.8 Plt Count 210 MPV 9.0 Absolute Neuts (auto) 5.6 Neutrophils % 73.3 Lymphocytes % 16.0 Monocytes % 6.4 Eosinophils % 3.2 Basophils % 1.1 Nucleated RBC % 0 PT with INR 12.40 INR 1.05 PTT (Actin FS) Sodium 140 Potassium 4.4 Chloride 105 Carbon Dioxide 27 Anion Gap 8 BUN 20 H Creatinine 0.7 Creat Clearance w eGFR > 60 Random Glucose 103 Calcium 9.3 Phosphorus Magnesium Total Bilirubin 0.5 AST 38 H ALT 37 Alkaline Phosphatase 101 Creatine Kinase Creatine Kinase Index CK-MB (CK-2) Troponin I B-Natriuretic Peptide Total Protein 7.2 Albumin 4.4 Triglycerides Cholesterol Total LDL Cholesterol HDL Cholesterol TSH Urine Color Urine Appearance Urine pH Ur Specific [place] Urine Protein Urine Glucose (UA) Urine Ketones Urine Blood Urine Nitrite Urine Bilirubin Urine Urobilinogen Ur Leukocyte Esterase Urine WBC (Auto) Urine RBC (Auto) Ur Epithelial Cells Urine Bacteria Urine Mucus 07/21/18 07/21/18 07/21/18 20:21 20:21 20:21 WBC RBC Hgb Hct MCV MCH MCHC RDW Plt Count MPV Absolute Neuts (auto) Neutrophils % Lymphocytes % Monocytes % Eosinophils % Basophils % Nucleated RBC % PT with INR INR PTT (Actin FS) Sodium Potassium Chloride Carbon Dioxide Anion Gap BUN Creatinine Creat Clearance w eGFR Random Glucose Calcium Phosphorus Magnesium Total Bilirubin AST ALT Alkaline Phosphatase Creatine Kinase 373 H Creatine Kinase Index 2.8 CK-MB (CK-2) 10.6 H Troponin I < 0.02 B-Natriuretic Peptide 106.2 Total Protein Albumin Triglycerides Cholesterol Total LDL Cholesterol HDL Cholesterol TSH Urine Color Yellow Urine Appearance Slcloudy Urine pH 5.0 Ur Specific [place] 1.014 Urine Protein Negative Urine Glucose (UA) Negative Urine Ketones Negative Urine Blood Negative Urine Nitrite Positive Urine Bilirubin Negative Urine Urobilinogen Negative Ur Leukocyte Esterase 2+ H Urine WBC (Auto) 50 Urine RBC (Auto) <1 Ur Epithelial Cells Rare Urine Bacteria Moderate Urine Mucus Rare 07/21/18 07/22/18 07/22/18 22:32 00:05 05:15 WBC RBC Hgb Hct MCV MCH MCHC RDW Plt Count MPV Absolute Neuts (auto) Neutrophils % Lymphocytes % Monocytes % Eosinophils % Basophils % Nucleated RBC % PT with INR INR PTT (Actin FS) Sodium 140 Potassium 3.5 Chloride 107 Carbon Dioxide 24 Anion Gap 10 BUN 18 Creatinine 0.5 L Creat Clearance w eGFR > 60 Random Glucose 77 Calcium 8.6 Phosphorus Magnesium Total Bilirubin 0.7 AST 24 ALT 29 Alkaline Phosphatase 87 Creatine Kinase 272 Creatine Kinase Index 3.1 CK-MB (CK-2) 8.6 H Troponin I < 0.02 B-Natriuretic Peptide Total Protein 6.0 L Albumin 3.7 Triglycerides Cholesterol Total LDL Cholesterol HDL Cholesterol TSH 1.12 Cancelled Urine Color Urine Appearance Urine pH Ur Specific [place] Urine Protein Urine Glucose (UA) Urine Ketones Urine Blood Urine Nitrite Urine Bilirubin Urine Urobilinogen Ur Leukocyte Esterase Urine WBC (Auto) Urine RBC (Auto) Ur Epithelial Cells Urine Bacteria Urine Mucus 07/22/18 07/22/18 07/22/18 05:25 05:25 05:25 WBC 6.7 RBC 4.17 Hgb 12.9 Hct 38.0 MCV 91.3 MCH 30.9 MCHC 33.8 RDW 13.5 Plt Count 180 MPV 8.1 Absolute Neuts (auto) 4.6 Neutrophils % 68.9 Lymphocytes % 19.6 D Monocytes % 7.4 Eosinophils % 3.5 Basophils % 0.6 Nucleated RBC % 0 PT with INR 12.70 INR 1.08 PTT (Actin FS) 31.2 Sodium 141 Potassium 3.8 Chloride 108 H Carbon Dioxide 25 Anion Gap 9 BUN 17 Creatinine 0.6 Creat Clearance w eGFR > 60 Random Glucose 88 Calcium 8.8 Phosphorus 3.2 Magnesium 2.0 Total Bilirubin AST ALT Alkaline Phosphatase Creatine Kinase Creatine Kinase Index CK-MB (CK-2) Troponin I B-Natriuretic Peptide Total Protein Albumin Triglycerides Cholesterol Total LDL Cholesterol HDL Cholesterol TSH 0.94 D Urine Color Urine Appearance Urine pH Ur Specific [place] Urine Protein Urine Glucose (UA) Urine Ketones Urine Blood Urine Nitrite Urine Bilirubin Urine Urobilinogen Ur Leukocyte Esterase Urine WBC (Auto) Urine RBC (Auto) Ur Epithelial Cells Urine Bacteria Urine Mucus 07/22/18 05:25 WBC RBC Hgb Hct MCV MCH MCHC RDW Plt Count MPV Absolute Neuts (auto) Neutrophils % Lymphocytes % Monocytes % Eosinophils % Basophils % Nucleated RBC % PT with INR INR PTT (Actin FS) Sodium Potassium Chloride Carbon Dioxide Anion Gap BUN Creatinine Creat Clearance w eGFR Random Glucose Calcium Phosphorus Magnesium Total Bilirubin AST ALT Alkaline Phosphatase Creatine Kinase Creatine Kinase Index CK-MB (CK-2) Troponin I B-Natriuretic Peptide Total Protein Albumin Triglycerides 77 Cholesterol 126 Total LDL Cholesterol 63 HDL Cholesterol 48 TSH Urine Color Urine Appearance Urine pH Ur Specific [place] Urine Protein Urine Glucose (UA) Urine Ketones Urine Blood Urine Nitrite Urine Bilirubin Urine Urobilinogen Ur Leukocyte Esterase Urine WBC (Auto) Urine RBC (Auto) Ur Epithelial Cells Urine Bacteria Urine Mucus Active Medications Generic Name Dose Route Start Last Admin Trade Name Freq PRN Reason Stop Dose Admin Enoxaparin Sodium 40 mg 07/22/18 10:00 07/22/18 11:35 Lovenox - SQ 40 mg DAILY [facility] Administration Finasteride 5 mg 07/22/18 10:00 07/22/18 11:33 Proscar - PO 5 mg DAILY [facility] Administration Hydrochlorothiazide 12.5 mg 07/22/18 10:00 07/22/18 11:33 Hctz - PO 12.5 mg DAILY [facility] Administration Ceftriaxone Sodium 1 gm/ 50 mls @ 200 mls/hr 07/22/18 10:00 07/22/18 11:34 Dextrose IVPB 200 mls/hr DAILY [facility] Administration Protocol Lamotrigine 25 mg 07/22/18 10:00 Lamictal - PO DAILY [facility] Methimazole 5 mg 07/22/18 10:00 07/22/18 11:34 Tapazole - PO 5 mg DAILY [facility] Administration Metoprolol Succinate 25 mg 07/22/18 10:00 07/22/18 11:34 Toprol Xl - PO 25 mg BID [facility]MI Administration Quinapril HCl 40 mg 07/22/18 10:00 Accupril - PO BID [facility]MI Tamsulosin HCl 0.4 mg 07/22/18 08:30 07/22/18 09:19 Flomax - PO 0.4 mg DAILY@0830 [facility] Administration Home Medications Medication Instructions Recorded Amlodipine Besylate [Norvasc -] 10 mg PO DAILY 03/28/16 Quinapril HCl [Accupril -] 40 mg PO BID 03/28/16 Finasteride 5 mg PO DAILY 07/21/18 Lamotrigine [Lamictal] 25 mg PO DAILY 07/21/18 Methimazole 5 mg PO DAILY 07/21/18 Tamsulosin HCl 0.4 mg PO DAILY 07/21/18 CT brain/LE duplex results reviewed ASSESSMENT/PLAN: 78 yom with PMx of cerebral palsy right right hemiparesis, HTN, BPH, Bipolar disorder controlled on Bryce for years, taken of last year in april after concerns of toxicity with HCTZ (that was started for LE edema), brought in with weakness/inability to get up from the toiled and progressive cognitive decline/ hallucinations -Weakness, deconditioning +/- lower uncomplicated UTI -Progressive cognitive decline with hallucinations, (Onset after being taken off lithium) -Falls, likely from above, r/o neurological etiology. -Abnormal EKG, likely from artefact -Chronic LE edema -Left knee replacement in 04/2017 -HTN -BPH -Cerebral palsy with left hemiparesis Plan: Urine cx, ceftriaxone day 1. Bladder scan x 1 to assess for retention. Continue flomax/finasteride reports progressive cognitive decline and hallucinations since being off Bryce. Bryce stopped last year given concerns for drug interactions. Was seen by psychiatrist Dr. Enciso recently and started on Lamictal. Psychiatry consult. Recurrent falls. Neurology input. PT eval. MRI brain if ongoing inhouse concerns. EKG reviewed, artefactual. No concerns for Afib. discussed with Dr. Berrios. No indication for inpatient 2D echo, can be pursueed outpatient. Amlodipine held due to leg edema. HCTZ resumed. LE duplex neg for DVT. Continue ACEI. DVTPPx lovenox PT eval and CM consult for d/c planning. Dispo dc in 24hours once safe disposition arranged if no new events. Plan discussed with patient and in detail, all questions answered. Discussed with nursing. Visit type - Emergency Visit Emergency Visit: Yes ED Registration Date: 07/21/18 Care time: The patient presented to the Emergency Department on the above date and was hospitalized for further evaluation of their emergent condition. - New Patient This patient is new to me today: Yes Date on this admission: 07/22/18 - Critical Care Critical Care patient: No - Discharge Referral Referred to [facility] Med P.C.: No
[2018-07-22] MEDS ORDERED: PT OWN MED DRAWER 7, Y5N ONE ×2 (14:59→21:35)
[2018-07-22] MEDS: lamoTRIgine 25 MG TABLET PO SCH (15:04)
[2018-07-22] MEDS: QUINAPRIL HCL 40 MG TABLET (FP) PO SCH ×2 (15:04→22:08)
[2018-07-23 07:49] LABS: BASO % 0.3 % (0-2.0); HEMATOCRIT 39.2 % (35.4-49); HEMOGLOBIN 13.1 GM/dL (11.7-16.9); LYMPH % 14.1 % (8-40); MCH 30.7 pg (25.7-33.7); MCHC 33.3 g/dl (32.0-35.9); MEAN CELL VOLUME 92.4 fl (80-96); MEAN PLT VOLUME 8.7 fl (7.5-11.1); MONO % 6.7 % (3.8-10.2); NEUT % 76.9 % (42.8-82.8); PLATELET COUNT 184 K/MM3 (134-434); RBC 4.24 M/mm3 (4.00-5.60); RDW 13.5 % (11.9-15.9); WHITE BLOOD COUNT 9.2 K/mm3 (4.0-10.0)
[2018-07-23 08:53] LABS: ANION GAP 8 MMOL/L (8-16); BLOOD UREA NITROGEN 17 mg/dL (7-18); CALCIUM 8.9 mg/dL (8.5-10.1); CHLORIDE 107 mmol/L (98-107); CO2 26 mmol/L (21-32); CREATININE 0.8 mg/dL (0.55-1.3); GLUCOSE,RANDOM 79 mg/dL (74-106); PHOSPHOROUS 3.6 mg/dL (2.5-4.9); POTASSIUM 3.8 mmol/L (3.5-5.1); SODIUM 142 mmol/L (136-145)
[2018-07-23] MEDS ORDERED: PT OWN MED DRAWER 7, Y5N ONE ×2 (09:34→21:58)
[2018-07-23] MEDS ORDERED: DEXTROSE 5%-WATER - 50 ML IVPB ONE (09:34)
[2018-07-23] MEDS ORDERED: cefTRIAXone SODIUM 1 GM VIAL ONE (09:34)
[2018-07-23] MEDS: TAMSULOSIN HCL 0.4 MG CAP PO SCH (09:42)
[2018-07-23] MEDS: METHIMAZOLE 5 MG TABLET (FP) PO SCH (09:42)
[2018-07-23] MEDS: metoPROLOL SUCCINATE 25 MG TAB.SR.24H (FP) PO SCH ×3 (09:42→22:05)
[2018-07-23] MEDS: CEFTRIAXONE 1 GM in DEXTROSE 5%-WATER - 50 ML IVPB SCH (09:42)
[2018-07-23] MEDS: HYDROCHLOROTHIAZIDE 12.5 MG CAPSULE (FP) PO SCH (09:42)
[2018-07-23] MEDS: lamoTRIgine 25 MG TABLET PO SCH ×3 (09:42→22:04)
[2018-07-23] MEDS: ENOXAPARIN NA (PORCINE) 40 MG/0.4 ML DISP.SYRIN SQ SCH (09:43)
[2018-07-23] MEDS: FINASTERIDE 5 MG TABLET (FP) PO SCH (09:43)
[2018-07-23] MEDS: QUINAPRIL HCL 40 MG TABLET (FP) PO SCH ×3 (09:44→22:05)
--- NOTE | 2018-07-23 10:31 | PN ---
Progress Note, Physician Chief Complaint: fatigue/somnolence History of Present Illness: denies sob or leg swelling. no cp, palpit. slept well last night - Current Medication List Current Medications: Active Medications Enoxaparin Sodium (Lovenox -) 40 mg SQ DAILY [facility] Last Admin: 07/23/18 09:43 Dose: 40 mg Finasteride (Proscar -) 5 mg PO DAILY [facility] Last Admin: 07/23/18 09:43 Dose: 5 mg Hydrochlorothiazide (Hctz -) 12.5 mg PO DAILY [facility] Last Admin: 07/23/18 09:42 Dose: 12.5 mg Ceftriaxone Sodium 1 gm/ (Dextrose) 50 mls @ 200 mls/hr IVPB DAILY [facility]; Protocol Last Admin: 07/23/18 09:42 Dose: 200 mls/hr Lamotrigine (Lamictal -) 25 mg PO DAILY [facility] Last Admin: 07/23/18 09:42 Dose: 25 mg Methimazole (Tapazole -) 5 mg PO DAILY [facility] Last Admin: 07/23/18 09:42 Dose: 5 mg Metoprolol Succinate (Toprol Xl -) 25 mg PO BID [facility] Last Admin: 07/23/18 09:42 Dose: 25 mg Quinapril HCl (Accupril -) 40 mg PO BID [facility] Last Admin: 07/23/18 09:44 Dose: 40 mg Tamsulosin HCl (Flomax -) 0.4 mg PO DAILY@0830 [facility] Last Admin: 07/23/18 09:42 Dose: 0.4 mg - Objective Vital Signs: Vital Signs Temperature 98.4 F 07/23/18 07:22 Pulse Rate 67 07/23/18 07:22 Respiratory Rate 20 07/23/18 07:22 Blood Pressure 139/70 07/23/18 07:22 O2 Sat by Pulse Oximetry (%) 100 07/22/18 21:00 Constitutional: Yes: Well Nourished, No Distress, Calm Cardiovascular: Yes: Regular Rate and Rhythm, S1, S2. No: JVD, Gallop, Murmur Respiratory: Yes: Regular, CTA Bilaterally. No: Accessory Muscle Use, Rales, Wheezes Extremities: No: Cold Edema: No Neurological: Yes: Alert, Oriented Psychiatric: No: Agitated Labs: CBC, BMP 07/23/18 06:15 07/23/18 06:15 INR, PTT INR 1.08 (0.83-1.09) 07/22/18 05:25 Assessment/Plan ECG #1: NSR with poor baseline (? tremor artifact). normal axis/intervals. no pathological q waves, no ST-T abn ECG #2: NSR with baseline wander artifact. normal intervals/axis. PVC. no pathol q waves. no ST-T abn. CXR: clear lungs/pleura bipolar disorder, incr fatigue/somnolence, visual hallucinations: -per psych, hospitalist LE swelling: -known h/o chronic edema -HCTZ stopped in rehab-->swelling increased -BNP normal, CXR clear. phys exam not c/w chf. -? side effect to high dose ccb (amlodipine)--would consider cutting dose to 2.5 -5 and titrating other bp meds. abnormal ECG (normal ECG with poor baseline): -no afib -no further cardiac w/u or mgmt indicated HTN: -was on HCTZ in past, resumed here -bp controlled -consider decrease/stop amlodipine to observe if edema responds. could try spironolactone or hydralazine instead. can be done as outpt with pt's PMD NO INDICATION FOR TELEMETRY MONITORING NO INDICATION FOR ECHO--D/C'D ORDER
--- NOTE | 2018-07-23 10:58 | CON.PSY ---
Psychiatry Consult Chief Complaint: 78 year old male with a history of life long Bipolar Disorder . Had been on lithium which was discontinuedc and started on Lamictal by his psych> patient admitted with AMS and Hallucinations as per his . Symptoms: reports: Diurnal Mood Changes, Impaired Concentration, Memory Impairment, Expansive / Elevated Mood - Previous Psychiatric Treatment Outpatient: Less than 6 mos ago Inpatient: One prior admission - Previous Substance Abuse Treatment Outpatient: None Inpatient: None - Reason for Previous Treatment Reason for Previous Treatment: Biploar Illness - Current Medications Current Medications: Active Medications Enoxaparin Sodium (Lovenox -) 40 mg SQ DAILY [facility] Last Admin: 07/23/18 09:43 Dose: 40 mg Finasteride (Proscar -) 5 mg PO DAILY [facility] Last Admin: 07/23/18 09:43 Dose: 5 mg Hydrochlorothiazide (Hctz -) 12.5 mg PO DAILY [facility] Last Admin: 07/23/18 09:42 Dose: 12.5 mg Ceftriaxone Sodium 1 gm/ (Dextrose) 50 mls @ 200 mls/hr IVPB DAILY [facility]; Protocol Last Admin: 07/23/18 09:42 Dose: 200 mls/hr Lamotrigine (Lamictal -) 25 mg PO DAILY [facility] Last Admin: 07/23/18 09:42 Dose: 25 mg Methimazole (Tapazole -) 5 mg PO DAILY [facility] Last Admin: 07/23/18 09:42 Dose: 5 mg Metoprolol Succinate (Toprol Xl -) 25 mg PO BID [facility] Last Admin: 07/23/18 09:42 Dose: 25 mg Quinapril HCl (Accupril -) 40 mg PO BID [facility] Last Admin: 07/23/18 09:44 Dose: 40 mg Tamsulosin HCl (Flomax -) 0.4 mg PO DAILY@0830 [facility] Last Admin: 07/23/18 09:42 Dose: 0.4 mg - Allergies Allergies: Allergies Allergy/AdvReac Type Severity Reaction Status Date / Time No Known Drug Allergies Allergy Verified 04/18/17 15:25 - Current Living Status Usual Living Arrangement: With Spouse - Current Mental Status Evaluation Appearance: Disheveled Attitude: Cooperative - Affect Affect: Expansive Appropriateness: Not Appropriate - Mood Mood: Euphoric - Speech/Language Expressive: Delayed - Psychomotor Activity Psychomotor Activity: Hyperactive - Thought Process Thought Process: Circumstantial - Thought Content Hallucinations: Present Type: Visual Delusions: Absent - Self Perception Self Perception: No Impairment - Cognition Attention: Alert Memory, Short Term: 2/3 Memory, Remote with Promptin/3 - Concentration Serial Sevens Intact: No Simple Calculations Intact: Yes - Abstraction Proverb Interpretation: Impaired Judgement: Minimally Impaired - Insight Insight: Impaired - Suicidal Ideation Suicidal Ideation: No - Homicidal Ideation Homicidal Ideation: No Assessment/Plan 1) increase Lamictal 25mg po bid.. Watch for Rash. 2) abilify 2mg pop od for manic like symptoms.
--- NOTE | 2018-07-23 11:01 | PN ---
Progress Note (short form) - Note Progress Note: WILL GO WITH aBILIFY 5MG PO OD FOR ACUTE MOOD LABILTY.
--- NOTE | 2018-07-23 12:44 | PN ---
Physical Exam: SUBJECTIVE: Patient seen and examined at bedside. Tangential speech. No acute events overnight. OBJECTIVE: Vital Signs Period Temp Pulse Resp BP Sys/Braxton Pulse Ox Last 24 Hr 98.4 F-99.9 F 67-81 20-20 121-145/56-78 100 GENERAL: NAD, Labile mood HEAD: Normal with no signs of trauma. EYES: EOMI Conjunctiva clear EARS, NOSE, THROAT: MMM NECK: Supple No JVD appreciated LUNGS: CTA B/L HEART: RRR No MRG S1S2 ABDOMEN: NTND No Guarding or rigidity MUSCULOSKELETAL: Right side body decreased motor strength 2/2 cerebral palsy . Unchanged UPPER EXTREMITIES:Right side body weakness 2/2 cerebral palsy LOWER EXTREMITIES: Right side weakness 2/2 cerebral palsy NEUROLOGICAL: Ambulates with walker. Speech coherent. Moves all extremities. SILT. PSYCHIATRIC: h/o bipolar d/o. SKIN: No rashes or lesions appreciated Laboratory Results - last 24 hr 07/23/18 07/23/18 06:15 06:15 WBC 9.2 RBC 4.24 Hgb 13.1 Hct 39.2 MCV 92.4 MCH 30.7 MCHC 33.3 RDW 13.5 Plt Count 184 MPV 8.7 Absolute Neuts (auto) 7.1 Neutrophils % 76.9 Lymphocytes % 14.1 D Monocytes % 6.7 Eosinophils % 2.0 Basophils % 0.3 Nucleated RBC % 0 Sodium 142 Potassium 3.8 Chloride 107 Carbon Dioxide 26 Anion Gap 8 BUN 17 Creatinine 0.8 Creat Clearance w eGFR > 60 Random Glucose 79 Calcium 8.9 Phosphorus 3.6 Magnesium 2.0 Active Medications Generic Name Dose Route Start Last Admin Trade Name Freq PRN Reason Stop Dose Admin Aripiprazole 5 mg 07/24/18 10:00 Abilify PO DAILY [facility] Enoxaparin Sodium 40 mg 07/22/18 10:00 07/23/18 09:43 Lovenox - SQ 40 mg DAILY [facility] Administration Finasteride 5 mg 07/22/18 10:00 07/23/18 09:43 Proscar - PO 5 mg DAILY [facility] Administration Hydrochlorothiazide 12.5 mg 07/22/18 10:00 07/23/18 09:42 Hctz - PO 12.5 mg DAILY [facility] Administration Ceftriaxone Sodium 1 gm/ 50 mls @ 200 mls/hr 07/22/18 10:00 07/23/18 09:42 Dextrose IVPB 200 mls/hr DAILY [facility] Administration Protocol Lamotrigine 25 mg 07/23/18 22:00 Lamictal - PO BID [facility] Methimazole 5 mg 07/22/18 10:00 07/23/18 09:42 Tapazole - PO 5 mg DAILY [facility] Administration Metoprolol Succinate 25 mg 07/22/18 10:00 07/23/18 09:42 Toprol Xl - PO 25 mg BID [facility]MI Administration Quinapril HCl 40 mg 07/22/18 10:00 07/23/18 09:44 Accupril - PO 40 mg BID [facility]MI Administration Tamsulosin HCl 0.4 mg 07/22/18 08:30 07/23/18 09:42 Flomax - PO 0.4 mg DAILY@0830 [facility] Administration ASSESSMENT/PLAN: Pt is a 78 y/o gentleman with a significant past medical history of bipolar d/o , cerebral palsy, and osteoarthritis who presented to [facility] due to altered mental status and increasing lower extremity edema. #Elevated CK-MB/CK -Resolved # Bipolar disorder/New onset Dementia - Recent episodes of hallucinations. Has not been taking lithium medication since last year -Started on Lamictal few days ago. Psy evaluated pt today. Lamictal increased to 25 mg po BID. Abilify 5 MG PO Daily. Watch for Greg Toni's rash. -CT Head W/O contrast--> No acute pathology. Moderate diffuse cortical atrophy. Chronic small vessel ischemic changes noted in the white matter. Prominence of the ventricles, left greater than right. -Brain MRI pending -Fall precautions. -Physical therapy -Get more information from his PCP - unclear why he is on methimazole. -Evaluated by Dr Chavez(Neurology) this afternoon. Differential: Lewy body dementia in light of hallucinations. MRI pending. RPR, B12 ordered as well. #Lower extremity edema -Resolved. Most likely 2/2 Amlodipine. - Troponin is negative. No significant pathology on CXR - EKG shows afib, a lot of artifact. Repeat EKG's--> normal axis/intervals. no pathological q waves, no ST-T abn. Cardio on board Started HCTZ 12.5 Daily. Amlodipine stopped. Edema significantly improved -Daily weights -Cardiology on board. Consider/Stop Amlodipine in light of increased peripheral edema. FEN No Fluids Monitor Electrolytes NA Controlled Diet #DVT PPX - Lovenox 40 mg SQ q 24 hours. Dispo: Tele Visit type - Emergency Visit Emergency Visit: Yes ED Registration Date: 07/23/18 Care time: The patient presented to the Emergency Department on the above date and was hospitalized for further evaluation of their emergent condition. - New Patient This patient is new to me today: No - Critical Care Critical Care patient: No - Discharge Referral Referred to [facility] Med P.C.: No
--- NOTE | 2018-07-23 13:52 | CON.NEURO ---
Consult Consult Specialty:: Neurology Referred by:: Dr. Castro Reason for Consultation:: Change in Mental Status - History of Present Illness Chief Complaint: Altered Mentation over last few months History of Present Illness: Patient's notes several months of cognitive decline. Patient has long history of bipolar disorder, previously on [place] but recently switched to lamotrigine. He is admitted for somnolence and altered mentation. reports specifically that he forgets that he takes things out of the refrigerator and doesn't return them and sees people that arent' there with no insight. He Doesn't seem disturbed by this. He has little insight and says that he is fine, though acknowledges his bipolar histoyr. He has no known family history of dementia. - History Source History Provided By: Family Member Limitations to Obtaining History: Dementia - Past Medical History SYSTEMS PLANNER: Yes: Other (cerebral palsy (spastic type)) Cardio/Vascular: Yes: HTN Psych: Yes: Bipolar - Alcohol/Substance Use Hx Alcohol Use: Yes (one drink daily) - Smoking History Smoking history: Former smoker Have you smoked in the past 12 months: No - Social History Usual Living Arrangement: With Spouse Home Medications - Allergies Allergies/Adverse Reactions: Allergies Allergy/AdvReac Type Severity Reaction Status Date / Time No Known Drug Allergies Allergy Verified 04/18/17 15:25 - Home Medications Home Medications: Ambulatory Orders Amlodipine Besylate [Norvasc -] 10 mg PO DAILY 03/28/16 Quinapril HCl [Accupril -] 40 mg PO BID 03/28/16 Finasteride 5 mg PO DAILY 07/21/18 Lamotrigine [Lamictal] 25 mg PO DAILY 07/21/18 Methimazole 5 mg PO DAILY 07/21/18 Tamsulosin HCl 0.4 mg PO DAILY 07/21/18 Physical Exam-Neuro Vital Signs: Vital Signs Temperature 98.4 F 07/23/18 07:22 Pulse Rate 67 07/23/18 07:22 Respiratory Rate 20 07/23/18 07:22 Blood Pressure 139/70 07/23/18 07:22 O2 Sat by Pulse Oximetry (%) 100 07/22/18 21:00 Constitutional: Yes: Calm Psychiatric: Yes: Other (tangential) Labs: CBC, BMP 07/23/18 06:15 07/23/18 06:15 INR, PTT INR 1.08 (0.83-1.09) 07/22/18 05:25 - Neuro Exam Level Of Consciousness: Yes: Alert, Oriented to Person, Oriented to Place, Oriented to Time (Says that it is close to July 23, 2018) Eyes: Yes: LEN Speech: WNL Cranial Nerves II-XII Intact: Yes DTR's: 0 Left Achilles, 2+ Left Bicep, 2+ Left Tricep, 2+ Left Brachioradialis, 3+ Right Bicep, 3+ Right Tricep, 3+ Right Brachioradialis Babinski: Absent (withdrew) Response to light touch: Abnormal (hyperesthesia on the right) Imaging - Results MRI: Pending Problem List - Problems (1) Dementia Code(s): F03.90 - UNSPECIFIED DEMENTIA WITHOUT BEHAVIORAL DISTURBANCE Assessment/Plan early dementia or encephalopathy of unclear etiology. Could be lewy body with early hallucinations. MRI brain pending. Also check rpr and b12. Will fu iwht you.
--- NOTE | 2018-07-23 14:24 | PN ---
Teaching Attending Note Name of Resident: Sharad Castro ATTENDING PHYSICIAN STATEMENT I saw and evaluated the patient. I reviewed the resident's note and discussed the case with the resident. I agree with the resident's findings and plan as documented with exceptions below. SUBJECTIVE: Patient seen and examined. tangential conversations, no pain or complaints otherwise. OBJECTIVE: Vital Signs Period Temp Pulse Resp BP Sys/Braxton Pulse Ox Last 24 Hr 98.4 F-99.9 F 67-81 20-20 121-145/56-78 100 Intake & Output 07/20/18 07/21/18 07/22/18 07/23/18 23:59 23:59 23:59 23:59 Intake Total 490 130 Output Total 3600 400 Balance -3110 -270 Weight 174 lb 170 lb General: sitting in bed in no acute distress pleasant, tangential conversations Chest: CTAB, no rales or wheezing Abdomen;Soft, NT, nD positive bowel sounds, no CVA tenderness, no suprapubic tenderness Extremities: markedly improved pedal edema Active Medications Aripiprazole (Abilify) 5 mg PO DAILY [facility] Enoxaparin Sodium (Lovenox -) 40 mg SQ DAILY [facility] Last Admin: 07/23/18 09:43 Dose: 40 mg Finasteride (Proscar -) 5 mg PO DAILY [facility] Last Admin: 07/23/18 09:43 Dose: 5 mg Hydrochlorothiazide (Hctz -) 12.5 mg PO DAILY [facility] Last Admin: 07/23/18 09:42 Dose: 12.5 mg Ceftriaxone Sodium 1 gm/ (Dextrose) 50 mls @ 200 mls/hr IVPB DAILY [facility]; Protocol Last Admin: 07/23/18 09:42 Dose: 200 mls/hr Lamotrigine (Lamictal -) 25 mg PO BID [facility] Methimazole (Tapazole -) 5 mg PO DAILY [facility] Last Admin: 07/23/18 09:42 Dose: 5 mg Metoprolol Succinate (Toprol Xl -) 25 mg PO BID [facility] Last Admin: 07/23/18 09:42 Dose: 25 mg Quinapril HCl (Accupril -) 40 mg PO BID [facility] Last Admin: 07/23/18 09:44 Dose: 40 mg Tamsulosin HCl (Flomax -) 0.4 mg PO DAILY@0830 [facility] Last Admin: 07/23/18 09:42 Dose: 0.4 mg Laboratory Results - last 24 hr 07/23/18 07/23/18 06:15 06:15 WBC 9.2 RBC 4.24 Hgb 13.1 Hct 39.2 MCV 92.4 MCH 30.7 MCHC 33.3 RDW 13.5 Plt Count 184 MPV 8.7 Absolute Neuts (auto) 7.1 Neutrophils % 76.9 Lymphocytes % 14.1 D Monocytes % 6.7 Eosinophils % 2.0 Basophils % 0.3 Nucleated RBC % 0 Sodium 142 Potassium 3.8 Chloride 107 Carbon Dioxide 26 Anion Gap 8 BUN 17 Creatinine 0.8 Creat Clearance w eGFR > 60 Random Glucose 79 Calcium 8.9 Phosphorus 3.6 Magnesium 2.0 MRI brain results pending ASSESSMENT AND PLAN: 78 yom with PMx of cerebral palsy right right hemiparesis, HTN, BPH, Bipolar disorder controlled on [place] for years, taken off last year in april after concerns of toxicity with HCTZ (that was started for LE edema), brought in with weakness/inability to get up from the toiled and progressive cognitive decline/hallucinations -Weakness, deconditioning +/- lower uncomplicated UTI -Urinary retention s/p ordonez -Progressive cognitive decline with hallucinations, (Onset after being taken off lithium) -Falls, likely from above, r/o neurological etiology. -Abnormal EKG, likely from artefact -Chronic LE edema -Left knee replacement in 04/2017 -HTN -BPH -Cerebral palsy with left hemiparesis Plan: Ceftriaxone day 2, ordonez with 1.5 l urine continue flomax/finasteride. Bladder US. Voiding trial in 24-48 hours. Follow up urine cx. reports progressive cognitive decline and hallucinations since being off [place]. [place] stopped last year given concerns for drug interactions with HCTZ. Was seen by psychiatrist Dr. Enciso recently and started on Lamictal. Dr. Salinas input noted. Started on abilify. Recurrent falls. Neurology input. follow MRI brain. PT eval noted. EKG reviewed, artefactual. No concerns for Afib. discussed with Dr. Berrios. No indication for inpatient 2D echo, can be pursued outpatient. Amlodipine held due to leg edema. HCTZ resumed. LE duplex neg for DVT. LE edema improved. Continue ACEI. DVTPPx lovenox 2 person assist, likely not a candidate for inpatient psych. Will follow up with CM for possible SNF placement. PLan discussed with at bedside, nursing, case advocate and psychiatry.
[2018-07-24 07:34] LABS: HEMOGLOBIN 14.1 GM/dL (11.7-16.9); MCH 30.7 pg (25.7-33.7); MCHC 33.7 g/dl (32.0-35.9); MEAN CELL VOLUME 91.3 fl (80-96); MEAN PLT VOLUME 8.4 fl (7.5-11.1); PLATELET COUNT 183 K/MM3 (134-434); RDW 13.2 % (11.9-15.9); WHITE BLOOD COUNT 9.2 K/mm3 (4.0-10.0)
[2018-07-24 08:05] LABS: ANION GAP 8 MMOL/L (8-16); BLOOD UREA NITROGEN 16 mg/dL (7-18); CALCIUM 8.9 mg/dL (8.5-10.1); CHLORIDE 104 mmol/L (98-107); CO2 27 mmol/L (21-32); CREATININE 0.7 mg/dL (0.55-1.3); GLUCOSE,RANDOM 102 mg/dL (74-106); MAGNESIUM 1.9 mg/dL (1.8-2.4); PHOSPHOROUS 3.4 mg/dL (2.5-4.9); POTASSIUM 3.7 mmol/L (3.5-5.1); SODIUM 140 mmol/L (136-145)
[2018-07-24] MEDS ORDERED: LORazepam 2 MG/ML SDV VIAL IM ONE (10:15)
[2018-07-24] MEDS ORDERED: cefTRIAXone SODIUM 1 GM VIAL ONE (10:24)
[2018-07-24] MEDS ORDERED: PT OWN MED DRAWER 7, Y5N ONE (10:24)
--- NOTE | 2018-07-24 10:27 | PN ---
Progress Note, Physician History of Present Illness: Patient's notes several months of cognitive decline. Patient has long history of bipolar disorder, previously on [place] but recently switched to lamotrigine. He is admitted for somnolence and altered mentation. reports specifically that he forgets that he takes things out of the refrigerator and doesn't return them and sees people that arent' there with no insight. He Doesn't seem disturbed by this. He has little insight and says that he is fine, though acknowledges his bipolar history. He has no known family history of dementia. - Current Medication List Current Medications: Active Medications Aripiprazole (Abilify) 5 mg PO DAILY [facility] Enoxaparin Sodium (Lovenox -) 40 mg SQ DAILY [facility] Last Admin: 07/23/18 09:43 Dose: 40 mg Finasteride (Proscar -) 5 mg PO DAILY [facility] Last Admin: 07/23/18 09:43 Dose: 5 mg Hydrochlorothiazide (Hctz -) 12.5 mg PO DAILY [facility] Last Admin: 07/23/18 09:42 Dose: 12.5 mg Ceftriaxone Sodium 1 gm/ (Dextrose) 50 mls @ 200 mls/hr IVPB DAILY [facility]; Protocol Last Admin: 07/23/18 09:42 Dose: 200 mls/hr Lamotrigine (Lamictal -) 25 mg PO BID [facility] Last Admin: 07/23/18 22:04 Dose: Not Given Methimazole (Tapazole -) 5 mg PO DAILY [facility] Last Admin: 07/23/18 09:42 Dose: 5 mg Metoprolol Succinate (Toprol Xl -) 25 mg PO BID [facility] Last Admin: 07/23/18 22:05 Dose: Not Given Quinapril HCl (Accupril -) 40 mg PO BID [facility] Last Admin: 07/23/18 22:05 Dose: Not Given Tamsulosin HCl (Flomax -) 0.4 mg PO DAILY@0830 [facility] Last Admin: 07/23/18 09:42 Dose: 0.4 mg - Objective Vital Signs: Vital Signs Temperature 98.6 F 07/24/18 06:00 Pulse Rate 82 07/24/18 06:00 Respiratory Rate 20 07/24/18 06:00 Blood Pressure 150/76 07/24/18 06:00 O2 Sat by Pulse Oximetry (%) 100 07/23/18 21:00 Labs: CBC, BMP 07/24/18 06:45 07/24/18 06:45 INR, PTT INR 1.08 (0.83-1.09) 07/22/18 05:25 - ....Imaging MRI: Image Reviewed (Report pending. Oddly shaped left lateral ventrical, enlarged with some ballooning. It looks developmental to me. Await report from radiology.) Problem List - Problems (1) Dementia Code(s): F03.90 - UNSPECIFIED DEMENTIA WITHOUT BEHAVIORAL DISTURBANCE Assessment/Plan early dementia or encephalopathy of unclear etiology. Could be lewy body with early hallucinations. MRI brain reviewed, but report pending. Also check rpr and b12 which are fine. Will fu with you.
[2018-07-24] MEDS: FINASTERIDE 5 MG TABLET (FP) PO SCH (10:32)
[2018-07-24] MEDS: metoPROLOL SUCCINATE 25 MG TAB.SR.24H (FP) PO SCH ×2 (10:32→22:06)
[2018-07-24] MEDS: METHIMAZOLE 5 MG TABLET (FP) PO SCH (10:32)
[2018-07-24] MEDS: TAMSULOSIN HCL 0.4 MG CAP PO SCH (10:32)
[2018-07-24] MEDS: HYDROCHLOROTHIAZIDE 12.5 MG CAPSULE (FP) PO SCH (10:33)
[2018-07-24] MEDS: lamoTRIgine 25 MG TABLET PO SCH ×2 (10:33→22:06)
[2018-07-24] MEDS: ENOXAPARIN NA (PORCINE) 40 MG/0.4 ML DISP.SYRIN SQ SCH (10:33)
[2018-07-24] MEDS: QUINAPRIL HCL 40 MG TABLET (FP) PO SCH ×2 (10:34→22:06)
[2018-07-24] MEDS: ARIPiprazole 5 MG TABLET (FP) PO SCH (10:34)
[2018-07-24] MEDS: CEFTRIAXONE 1 GM in DEXTROSE 5%-WATER - 50 ML IVPB SCH (10:35)
--- NOTE | 2018-07-24 11:59 | PN ---
Progress Note (short form) - Note Progress Note: Chief Complaint: fatigue/somnolence History of Present Illness: sleeping after receiving ativan this morning. did not sleep overnight Current Medications Aripiprazole (Abilify) 5 mg PO DAILY [facility] Last Admin: 07/24/18 10:34 Dose: 5 mg Enoxaparin Sodium (Lovenox -) 40 mg SQ DAILY [facility] Last Admin: 07/24/18 10:33 Dose: 40 mg Finasteride (Proscar -) 5 mg PO DAILY [facility] Last Admin: 07/24/18 10:32 Dose: 5 mg Hydrochlorothiazide (Hctz -) 12.5 mg PO DAILY [facility] Last Admin: 07/24/18 10:33 Dose: 12.5 mg Ceftriaxone Sodium 1 gm/ (Dextrose) 50 mls @ 200 mls/hr IVPB DAILY [facility]; Protocol Last Admin: 07/24/18 10:35 Dose: 200 mls/hr Lamotrigine (Lamictal -) 25 mg PO BID [facility] Last Admin: 07/24/18 10:33 Dose: 25 mg Methimazole (Tapazole -) 5 mg PO DAILY [facility] Last Admin: 07/24/18 10:32 Dose: 5 mg Metoprolol Succinate (Toprol Xl -) 25 mg PO BID [facility] Last Admin: 07/24/18 10:32 Dose: 25 mg Quinapril HCl (Accupril -) 40 mg PO BID [facility] Last Admin: 07/24/18 10:34 Dose: 40 mg Tamsulosin HCl (Flomax -) 0.4 mg PO DAILY@0830 [facility] Last Admin: 07/24/18 10:32 Dose: 0.4 mg Vital Signs Period Temp Pulse Resp BP Sys/Braxton Pulse Ox Last 24 Hr 97.8 F-98.6 F 68-82 18-20 147-150/76-78 100 Constitutional: Yes: Well Nourished, No Distress, Calm Cardiovascular: Yes: Regular Rate and Rhythm, S1, S2. No: JVD, Gallop, Murmur Respiratory: Yes: Regular, CTA Bilaterally. No: Accessory Muscle Use, Rales, Wheezes Extremities: No: Cold Edema: No Neurological: Yes: Alert, Oriented Psychiatric: No: Agitated Assessment/Plan ECG #1: NSR with poor baseline (? tremor artifact). normal axis/intervals. no pathological q waves, no ST-T abn ECG #2: NSR with baseline wander artifact. normal intervals/axis. PVC. no pathol q waves. no ST-T abn. CXR: clear lungs/pleura bipolar disorder, incr fatigue/somnolence, visual hallucinations: -per psych, hospitalist LE swelling: -known h/o chronic edema -HCTZ stopped in rehab-->swelling increased -BNP normal, CXR clear. phys exam not c/w chf. - swelling improved with stopping amlodipine and restarting HCTZ, per he is at baseline abnormal ECG (normal ECG with poor baseline): -no afib -no further cardiac w/u or mgmt indicated HTN: -was on HCTZ in past, resumed here, amlodipine stopped -bp stable
--- NOTE | 2018-07-24 13:22 | PN ---
Teaching Attending Note Name of Resident: Sharad Castro ATTENDING PHYSICIAN STATEMENT I saw and evaluated the patient. I reviewed the resident's note and discussed the case with the resident. I agree with the resident's findings and plan as documented. SUBJECTIVE:shouting and yelling. tangential thoughts and flight of ideas. OBJECTIVE: Last Vital Signs Temp Pulse Resp BP Pulse Ox 98.6 F 82 20 150/76 100 07/24/18 06:00 07/24/18 06:00 07/24/18 06:00 07/24/18 06:00 07/23/18 21:00 General rapid speech, flight of ideas. yelling and mad and then crying refused physical exam ASSESSMENT AND PLAN: 78 yo M with PMx of cerebral palsy with right right hemiparesis, HTN, BPH, Bipolar disorder controlled on [place] for years, taken off last year in april after concerns of toxicity with HCTZ (that was started for LE edema), brought in with weakness/inability to get up from the toiled and progressive cognitive decline/hallucinations 1. Acute metabolic encephalopathy- could be due to UTI vs progressive dementia vs lewy body dementia. UCx is negative however received ABx prior to Cx being obtained. would treat at this time as this could contribute. on ceftriaxone day 3. MRI brain done and awaiting official read. TSH WNL, VitB12 WNL, RPR negative 2. Urine retention- s/p ordonez placement. was unable to do bladder scan due to patient refusal. bladder/pelvic u/s ordered. will attempt to remove ordonez when patient mental status is more stable for trial off ordonez. 3. fall- due to mental state. ambulated 200ft with PT but requires a lot of assistance. would probable benfit from [facility]. 4. Manic episode- possible worsening in setting of acute infection. lithium also being held. started on abilify. will likely require involuntary psych placement 5. CP with L hemiparesis 6. HTN 7. BPH 8. Hyperthyroid- TSH WNL. on methimazole. 9. DVT ppx- lovenox
--- NOTE | 2018-07-24 14:01 | PN ---
Physical Exam: SUBJECTIVE: Patient seen and examined at bedside. Agitated, racing thoughts, labile mood. OBJECTIVE: Vital Signs Period Temp Pulse Resp BP Sys/Braxton Pulse Ox Last 24 Hr 97.8 F-98.6 F 68-82 18-20 147-150/76-78 100 GENERAL: Labile mood, Racing thoughts, tangential speech HEAD: NC/AT EYES: EOMI Conjunctiva clear EARS, NOSE, THROAT: MMM NECK: Supple No JVD appreciated LUNGS: CTA B/L HEART: RRR No MRG S1S2 ABDOMEN: NTND No Guarding or rigidity NEUROLOGICAL: Ambulates with walker. Speech coherent. Moves all extremities. SILT. PSYCHIATRIC: Tangential speech, labile mood Laboratory Results - last 24 hr 07/23/18 07/24/18 07/24/18 06:15 06:45 06:45 WBC 9.2 RBC 4.60 Hgb 14.1 Hct 42.0 MCV 91.3 MCH 30.7 MCHC 33.7 RDW 13.2 Plt Count 183 MPV 8.4 Sodium 140 Potassium 3.7 Chloride 104 Carbon Dioxide 27 Anion Gap 8 BUN 16 Creatinine 0.7 Creat Clearance w eGFR > 60 Random Glucose 102 Calcium 8.9 Phosphorus 3.4 Magnesium 1.9 Vitamin B12 478 RPR Titer 07/24/18 06:45 WBC RBC Hgb Hct MCV MCH MCHC RDW Plt Count MPV Sodium Potassium Chloride Carbon Dioxide Anion Gap BUN Creatinine Creat Clearance w eGFR Random Glucose Calcium Phosphorus Magnesium Vitamin B12 RPR Titer Nonreactive Active Medications Generic Name Dose Route Start Last Admin Trade Name Freq PRN Reason Stop Dose Admin Aripiprazole 5 mg 07/24/18 10:00 07/24/18 10:34 Abilify PO 5 mg DAILY [facility] Administration Enoxaparin Sodium 40 mg 07/22/18 10:00 07/24/18 10:33 Lovenox - SQ 40 mg DAILY [facility] Administration Finasteride 5 mg 07/22/18 10:00 07/24/18 10:32 Proscar - PO 5 mg DAILY [facility] Administration Hydrochlorothiazide 12.5 mg 07/22/18 10:00 07/24/18 10:33 Hctz - PO 12.5 mg DAILY [facility] Administration Ceftriaxone Sodium 1 gm/ 50 mls @ 200 mls/hr 07/22/18 10:00 07/24/18 10:35 Dextrose IVPB 200 mls/hr DAILY [facility] Administration Protocol Lamotrigine 25 mg 07/23/18 22:00 07/24/18 10:33 Lamictal - PO 25 mg BID [facility] Administration Methimazole 5 mg 07/22/18 10:00 07/24/18 10:32 Tapazole - PO 5 mg DAILY [facility] Administration Metoprolol Succinate 25 mg 07/22/18 10:00 07/24/18 10:32 Toprol Xl - PO 25 mg BID [facility] Administration Quinapril HCl 40 mg 07/22/18 10:00 07/24/18 10:34 Accupril - PO 40 mg BID [facility] Administration Tamsulosin HCl 0.4 mg 07/22/18 08:30 07/24/18 10:32 Flomax - PO 0.4 mg DAILY@0830 [facility] Administration ASSESSMENT/PLAN: Pt is a 78 y/o gentleman with a significant past medical history of bipolar d/o , cerebral palsy, and osteoarthritis who presented to [facility] due to altered mental status and increasing lower extremity edema. # UTI -On ceftriaxone day 3 -Urine Cultures negative. However, Cx's taken after antibiotic treatment. Will continue ABx. May be contributing to altered mental status vs dementia vs ronal ? Dr Salinas on board. Recommends transfer to in patient psych unit with a 2 PC. Urinary Retention May be 2/2 BPH vs UTI Maintain ordonez for now. Will do TOV when pt mental status improves. Continue Tamsulosin/Finasteride # Bipolar disorder/New onset Dementia - Recent episodes of hallucinations. Has not been taking lithium medication since last year -Started on Lamictal few days ago. Psy evaluated pt today. Lamictal 25 mg po BID. Abilify 5 MG PO Daily. Watch for Greg Toni's rash. -CT Head W/O contrast--> No acute pathology. Moderate diffuse cortical atrophy. Chronic small vessel ischemic changes noted in the white matter. Prominence of the ventricles, left greater than right. -Brain MRI ---> ischemic changes white matter of both cerebral hemispheres more prominent the left frontal, parietal, temporal lobe with ipsilateral dilation of the left lateral ventricle. -Fall precautions. -Physical therapy -Get more information from his PCP - unclear why he is on methimazole. - Dr Chavez(Neurology) Differential: Lewy body dementia in light of hallucinations. RPR nonreactive, B12 WNL #Lower extremity edema -Resolved. Most likely 2/2 Amlodipine. - Troponin is negative. No significant pathology on CXR - EKG shows afib, a lot of artifact. Repeat EKG's--> normal axis/intervals. no pathological q waves, no ST-T abn. Cardio on board Started HCTZ 12.5 Daily. Amlodipine stopped. Edema significantly improved -Daily weights -Cardiology on board. Consider/Stop Amlodipine in light of increased peripheral edema. FEN No Fluids Monitor Electrolytes NA Controlled Diet #DVT PPX - Lovenox 40 mg SQ q 24 hours. Dispo: Tele Visit type - Emergency Visit Emergency Visit: Yes ED Registration Date: 07/23/18 Care time: The patient presented to the Emergency Department on the above date and was hospitalized for further evaluation of their emergent condition. - New Patient This patient is new to me today: No - Critical Care Critical Care patient: No - Discharge Referral Referred to [facility] Med P.C.: No
--- NOTE | 2018-07-24 18:29 | PN ---
Progress Note (short form) - Note Progress Note: Spoke to Patients at length> She reports that patient had decompensated into acute manic episode since [place] was stopped due to Medical complications.He had one previous admission to [facility] for similar episode many years ago. MS: alert, confused, very labile with some hallucinatory phenomenon. Displaying agitation requiring emergenvy attention. Insight , judgement impaired. Rec: [facility] to In Patient Psych unit when medically stable on a 2PC.
[2018-07-25 07:29] LABS: HEMATOCRIT 40.2 % (35.4-49); HEMOGLOBIN 14.5 GM/dL (11.7-16.9); MCH 32.5 pg (25.7-33.7); MEAN CELL VOLUME 90.4 fl (80-96); MEAN PLT VOLUME 8.8 fl (7.5-11.1); PLATELET COUNT 200 K/MM3 (134-434); RBC 4.44 M/mm3 (4.00-5.60); RDW 13.5 % (11.9-15.9); WHITE BLOOD COUNT 10.7 K/mm3 (4.0-10.0)
[2018-07-25 08:21] LABS: ANION GAP 12 MMOL/L (8-16); BLOOD UREA NITROGEN 18 mg/dL (7-18); CALCIUM 7.7 mg/dL (8.5-10.1); CHLORIDE 114 mmol/L (98-107); CO2 21 mmol/L (21-32); GLUCOSE,RANDOM 56 mg/dL (74-106); MAGNESIUM 2.3 mg/dL (1.8-2.4); PHOSPHOROUS 7.2 mg/dL (2.5-4.9); POTASSIUM 4.4 mmol/L (3.5-5.1); SODIUM 147 mmol/L (136-145)
[2018-07-25] MEDS ORDERED: DEXTROSE 5%-WATER - 50 ML IVPB ONE (09:09)
[2018-07-25] MEDS ORDERED: cefTRIAXone SODIUM 1 GM VIAL ONE (09:09)
[2018-07-25] MEDS ORDERED: PT OWN MED DRAWER 7, Y5N ONE ×4 (10:05→21:42)
[2018-07-25] MEDS: CEFTRIAXONE 1 GM in DEXTROSE 5%-WATER - 50 ML IVPB SCH (10:12)
[2018-07-25] MEDS: METHIMAZOLE 5 MG TABLET (FP) PO SCH (10:13)
[2018-07-25] MEDS: metoPROLOL SUCCINATE 25 MG TAB.SR.24H (FP) PO SCH ×2 (10:13→22:18)
[2018-07-25] MEDS: HYDROCHLOROTHIAZIDE 12.5 MG CAPSULE (FP) PO SCH (10:13)
[2018-07-25] MEDS: TAMSULOSIN HCL 0.4 MG CAP PO SCH (10:13)
[2018-07-25] MEDS: ENOXAPARIN NA (PORCINE) 40 MG/0.4 ML DISP.SYRIN SQ SCH (10:13)
[2018-07-25] MEDS: lamoTRIgine 25 MG TABLET PO SCH ×2 (10:14→23:48)
[2018-07-25] MEDS: QUINAPRIL HCL 40 MG TABLET (FP) PO SCH ×2 (10:15→22:18)
[2018-07-25] MEDS: ARIPiprazole 5 MG TABLET (FP) PO SCH (10:15)
[2018-07-25] MEDS: POLYETHYLENE GLYCOL 3350 119 GM BTL PO SCH ×2 (10:17→22:18)
[2018-07-25] MEDS: FINASTERIDE 5 MG TABLET (FP) PO SCH (10:18)
--- NOTE | 2018-07-25 11:54 | PN ---
Physical Exam: SUBJECTIVE: Patient seen and examined at bedside this am. Given Ativan 2 mg overnight for agitation. OBJECTIVE: Vital Signs Period Temp Pulse Resp BP Sys/Braxton Pulse Ox Last 24 Hr 97.2 F-98.8 F 66-80 18-20 96-134/62-75 GENERAL: More Calm, responding appropriately to questions HEAD: NC/AT EYES: EOMI Conjunctiva clear ENT: MMM NECK: Trachea midline, full range of motion, supple. LUNGS: Breath sounds equal, clear to auscultation bilaterally, no wheezes, no crackles, no accessory muscle use. HEART: RRR No MRG Appreciated ABDOMEN: Soft Nondistended nontender EXTREMITIES: No CCE NEUROLOGICAL: R sided decreased motor strength 2/2 cerebral palsy SILT PSYCH:Bipolar d/o. Labile mood SKIN: No rashes appreciated Laboratory Results - last 24 hr 07/25/18 07/25/18 06:30 06:30 WBC 10.7 H RBC 4.44 Hgb 14.5 Hct 40.2 MCV 90.4 MCH 32.5 MCHC 36.0 H RDW 13.5 Plt Count 200 MPV 8.8 Sodium 147 H Potassium 4.4 Chloride 114 H Carbon Dioxide 21 Anion Gap 12 BUN 18 Creatinine 1.0 Creat Clearance w eGFR > 60 Random Glucose 56 L Calcium 7.7 L Phosphorus 7.2 H Magnesium 2.3 Active Medications Generic Name Dose Route Start Last Admin Trade Name Freq PRN Reason Stop Dose Admin Aripiprazole 5 mg 07/24/18 10:00 07/25/18 10:15 Abilify PO 5 mg DAILY [facility] Administration Enoxaparin Sodium 40 mg 07/22/18 10:00 07/25/18 10:13 Lovenox - SQ 40 mg DAILY [facility] Administration Finasteride 5 mg 07/22/18 10:00 07/25/18 10:18 Proscar - PO 5 mg DAILY [facility] Administration Hydrochlorothiazide 12.5 mg 07/22/18 10:00 07/25/18 10:13 Hctz - PO 12.5 mg DAILY [facility] Administration Ceftriaxone Sodium 1 gm/ 50 mls @ 200 mls/hr 07/22/18 10:00 07/25/18 10:12 Dextrose IVPB 200 mls/hr DAILY [facility] Administration Protocol Lamotrigine 25 mg 07/23/18 22:00 12/12/18 10:14 Lamictal - PO 25 mg BID [facility] Administration Methimazole 5 mg 07/22/18 10:00 07/25/18 10:13 Tapazole - PO 5 mg DAILY [facility] Administration Metoprolol Succinate 25 mg 07/22/18 10:00 07/25/18 10:13 Toprol Xl - PO 25 mg BID [facility] Administration Polyethylene Glycol 17 gm 07/25/18 10:00 07/25/18 10:17 Miralax (For Daily Use) - PO 17 gm BID [facility] Administration Quinapril HCl 40 mg 07/22/18 10:00 07/25/18 10:15 Accupril - PO 40 mg BID [facility] Administration Senna 2 tab 07/25/18 22:00 Senna - PO HS [facility] Tamsulosin HCl 0.4 mg 07/22/18 08:30 07/25/18 10:13 Flomax - PO 0.4 mg DAILY@0830 [facility] Administration ASSESSMENT/PLAN: Pt is a 78 y/o gentleman with a significant past medical history of bipolar d/o , cerebral palsy, and osteoarthritis who presented to [facility] due to altered mental status and increasing lower extremity edema. # UTI -On Ceftriaxone day 4 -Urine Cultures negative. However, Cx's taken after antibiotic treatment. Will continue ABx. May be contributing to altered mental status vs dementia vs ronal ? Dr Salinas on board. Recommends transfer to in patient psych unit- 2 PC obtained. Awaiting placement. Family prefers [facility] Urinary Retention May be 2/2 BPH vs UTI Maintain ordonez for now. Will do TOV when pt mental status improves. Continue Tamsulosin/Finasteride # Bipolar disorder/New onset Dementia - Recent episodes of hallucinations. Has not been taking lithium medication since last year - Lamictal 25 mg po BID. Abilify 5 MG PO Daily. Watch for Greg Toni's rash. -CT Head W/O contrast--> No acute pathology. Moderate diffuse cortical atrophy. Chronic small vessel ischemic changes noted in the white matter. Prominence of the ventricles, left greater than right. -Brain MRI ---> ischemic changes white matter of both cerebral hemispheres more prominent the left frontal, parietal, temporal lobe with ipsilateral dilation of the left lateral ventricle. -Fall precautions. -Physical therapy -Get more information from his PCP - unclear why he is on methimazole. - Dr Chavez(Neurology) Differential: Lewy body dementia in light of hallucinations. RPR nonreactive, B12 WNL #Lower extremity edema -Resolved. Most likely 2/2 Amlodipine. - Troponin is negative. No significant pathology on CXR - EKG shows afib, a lot of artifact. Repeat EKG's--> normal axis/intervals. no pathological q waves, no ST-T abn. Cardio on board Started HCTZ 12.5 Daily. Amlodipine stopped. Edema significantly improved -Daily weights -Cardiology on board. Consider/Stop Amlodipine in light of increased peripheral edema. FEN No Fluids Monitor Electrolytes NA Controlled Diet #DVT PPX - Lovenox 40 mg SQ q 24 hours. Dispo: [id number] to in patient psych pending bed availability. 2 PC obtained. Family requesting [facility] Visit type - Emergency Visit Emergency Visit: Yes ED Registration Date: 07/23/18 Care time: The patient presented to the Emergency Department on the above date and was hospitalized for further evaluation of their emergent condition. - New Patient This patient is new to me today: No - Critical Care Critical Care patient: No - Discharge Referral Referred to [facility] Med P.C.: No
--- NOTE | 2018-07-25 12:34 | PN ---
Progress Note (short form) - Note Progress Note: Chief Complaint: fatigue/somnolence History of Present Illness: no chest pain, palps, dizziness, lightheadedness Current Medications Aripiprazole (Abilify) 5 mg PO DAILY [facility] TO [facility] Last Admin: 07/25/18 10:15 Dose: 5 mg Enoxaparin Sodium (Lovenox -) 40 mg SQ DAILY [facility] Last Admin: 07/25/18 10:13 Dose: 40 mg Finasteride (Proscar -) 5 mg PO DAILY [facility] Last Admin: 07/25/18 10:18 Dose: 5 mg Hydrochlorothiazide (Hctz -) 12.5 mg PO DAILY [facility] Last Admin: 07/25/18 10:13 Dose: 12.5 mg Ceftriaxone Sodium 1 gm/ (Dextrose) 50 mls @ 200 mls/hr IVPB DAILY [facility]ENDING S[facility] TO [facility]; Protocol Last Admin: 07/25/18 10:12 Dose: 200 mls/hr Lamotrigine (Lamictal -) 25 mg PO BID [facility] Last Admin: 07/25/18 10:14 Dose: 25 mg Methimazole (Tapazole -) 5 mg PO DAILY [facility] Last Admin: 07/25/18 10:13 Dose: 5 mg Metoprolol Succinate (Toprol Xl -) 25 mg PO BID [facility] Last Admin: 07/25/18 10:13 Dose: 25 mg Polyethylene Glycol (Miralax (For Daily Use) -) 17 gm PO BID [facility] Last Admin: 07/25/18 10:17 Dose: 17 gm Quinapril HCl (Accupril -) 40 mg PO BID [facility] Last Admin: 07/25/18 10:15 Dose: 40 mg Senna (Senna -) 2 tab PO [facility] Tamsulosin HCl (Flomax -) 0.4 mg PO DAILY@0830 PENDING S[facility] TO [facility] Last Admin: 07/25/18 10:13 Dose: 0.4 mg Vital Signs Period Temp Pulse Resp BP Sys/Braxton Pulse Ox Last 24 Hr 97.2 F-98.8 F 66-80 18-20 96-134/62-75 Constitutional: Yes: Well Nourished, No Distress, Calm Cardiovascular: Yes: Regular Rate and Rhythm, S1, S2. No: JVD, Gallop, Murmur Respiratory: Yes: Regular, CTA Bilaterally. No: Accessory Muscle Use, Rales, Wheezes Extremities: No: Cold Edema: No Neurological: Yes: Alert, Oriented Psychiatric: No: Agitated Assessment/Plan ECG #1: NSR with poor baseline (? tremor artifact). normal axis/intervals. no pathological q waves, no ST-T abn ECG #2: NSR with baseline wander artifact. normal intervals/axis. PVC. no pathol q waves. no ST-T abn. CXR: clear lungs/pleura bipolar disorder, incr fatigue/somnolence, visual hallucinations: -per psych, hospitalist LE swelling: -known h/o chronic edema -HCTZ stopped in rehab-->swelling increased -BNP normal, CXR clear. phys exam not c/w chf - swelling improved with stopping amlodipine and restarting HCTZ, edema now resolved abnormal ECG (normal ECG with poor baseline): -no afib -no further cardiac w/u or mgmt indicated HTN: -was on HCTZ in past, resumed here, amlodipine stopped -bp stable
--- NOTE | 2018-07-25 18:05 | PN ---
Teaching Attending Note Name of Resident: Sharad Castro ATTENDING PHYSICIAN STATEMENT I saw and evaluated the patient. I reviewed the resident's note and discussed the case with the resident. I agree with the resident's findings and plan as documented. SUBJECTIVE: Patient is confused. He becomes agitated and at times is threatening. He talks about killing the families of anyone who says anything about his . He talks about killing people with his bare hands. When talking about his , he begins to cry. OBJECTIVE: Vital Signs Period Temp Pulse Resp BP Sys/Braxton Pulse Ox Last 24 Hr 97.8 F-98.8 F 70-82 18-20 114-134/61-79 HEART: S1S2, RRR LUNGS: Clear ABDOMEN: Soft, non-tender, non-distended, normal BS EXTREMITIES: No edema Laboratory Results - last 24 hr 07/25/18 07/25/18 06:30 06:30 WBC 10.7 H RBC 4.44 Hgb 14.5 Hct 40.2 MCV 90.4 MCH 32.5 MCHC 36.0 H RDW 13.5 Plt Count 200 MPV 8.8 Sodium 147 H Potassium 4.4 Chloride 114 H Carbon Dioxide 21 Anion Gap 12 BUN 18 Creatinine 1.0 Creat Clearance w eGFR > 60 Random Glucose 56 L Calcium 7.7 L Phosphorus 7.2 H Magnesium 2.3 Current Medications Generic Name Dose Route Start Last Admin Trade Name Freq PRN Reason Stop Dose Admin Aripiprazole 5 mg 07/24/18 10:00 07/25/18 10:15 Abilify PO 5 mg DAILY [facility] Administration Enoxaparin Sodium 40 mg 07/22/18 10:00 07/25/18 10:13 Lovenox - SQ 40 mg DAILY DELMI Administration Finasteride 5 mg 07/22/18 10:00 07/25/18 10:18 Proscar - PO 5 mg DAILY [facility]MI Administration Hydrochlorothiazide 12.5 mg 07/22/18 10:00 07/25/18 10:13 Hctz - PO 12.5 mg DAILY DELMI Administration Ceftriaxone Sodium 1 gm/ 50 mls @ 200 mls/hr 07/22/18 10:00 07/25/18 10:12 Dextrose IVPB 200 mls/hr DAILY DELMI Administration Protocol Lamotrigine 25 mg 07/23/18 22:00 07/25/18 10:14 Lamictal - PO 25 mg BID DELMI Administration Methimazole 5 mg 07/22/18 10:00 07/25/18 10:13 Tapazole - PO 5 mg DAILY DELMI Administration Metoprolol Succinate 25 mg 07/22/18 10:00 07/25/18 10:13 Toprol Xl - PO 25 mg BID DELMI Administration Polyethylene Glycol 17 gm 07/25/18 10:00 07/25/18 10:17 Miralax (For Daily Use) - PO 17 gm BID DELMI Administration Quinapril HCl 40 mg 07/22/18 10:00 07/25/18 10:15 Accupril - PO 40 mg BID DELMI Administration Senna 2 tab 07/25/18 22:00 Senna - PO HS DELMI Tamsulosin HCl 0.4 mg 07/22/18 08:30 07/25/18 10:13 Flomax - PO 0.4 mg DAILY@0830 DELMI Administration ASSESSMENT AND PLAN: This is a 78 year old man with a history of cerebral palsy, HTN, BPH, bipolar disorder who presented to the ED with weakness and hallucinations. 1. Bipolar disorder with acute ronal - Continue Lamictal, Abilify - Currently requires inpatient psychiatry 2. BPH with urinary retention, UTI - Continue ceftriaxone, Flomax, Proscar - s/p Pittman catheter insertion 3. Acute sinusitis - Continue ceftriaxone 4. s/p fall - Continue PT 5. Cerebral palsy with right-sided weakness 6. HTN - Continue Accupril, HCTZ, Toprol XL 7. Hyperthyroidism - Continue Tapazole
--- NOTE | 2018-07-25 21:09 | PN ---
Progress Note (short form) - Note Progress Note: Patient's notes several months of cognitive decline. Patient has long history of bipolar disorder, previously on [place] but recently switched to lamotrigine. He is admitted for somnolence and altered mentation. reports specifically that he forgets that he takes things out of the refrigerator and doesn't return them and sees people that arent' there with no insight. He Doesn't seem disturbed by this. He has little insight and says that he is fine, though acknowledges his bipolar history. He has no known family history of dementia. Found to have UTI, today reports he still sees people but less so, he has been agitated, now on Abilify and Lamictal started. -DDx. for his presentation includes LBD(pts. with this dx. can worsen cognitivelly with neuroleptics, if possible would manage with mood stabilizer only:please request psychiatry opinion regarding this issue). Will follow, Thank you, Bola Quick MD
[2018-07-25] MEDS: SENNOSIDES 8.6MG TABLET (FP) PO SCH (22:17)
[2018-07-26 07:41] LABS: MCH 32.2 pg (25.7-33.7); MCHC 35.9 g/dl (32.0-35.9); MEAN CELL VOLUME 89.7 fl (80-96); MEAN PLT VOLUME 8.8 fl (7.5-11.1); PLATELET COUNT 219 K/MM3 (134-434); RBC 4.34 M/mm3 (4.00-5.60); RDW 13.3 % (11.9-15.9); WHITE BLOOD COUNT 8.2 K/mm3 (4.0-10.0)
--- NOTE | 2018-07-26 08:23 | PN ---
Progress Note (short form) - Note Progress Note: Patient's notes several months of cognitive decline. Patient has long history of bipolar disorder, previously on [place] but recently switched to lamotrigine. He is admitted for somnolence and altered mentation. reports specifically that he forgets that he takes things out of the refrigerator and doesn't return them and sees people that arent' there with no insight. He Doesn't seem disturbed by this. He has little insight and says that he is fine, though acknowledges his bipolar history. He has no known family history of dementia. Found to have UTI, he reports he still sees people but less so, he has been agitated, now on Abilify and Lamictal started. DDx includes Lewy Body Dementia, though reportedly has had similar presentations in the past with psychotic breaks resulting in [facility] admission years ago as per Dr. Salinas's note. Best to see what he looks like as his psychosis/mood clears and can better assess his cognitive state at that point. Problem List - Problems (1) Dementia Code(s): F03.90 - UNSPECIFIED DEMENTIA WITHOUT BEHAVIORAL DISTURBANCE
[2018-07-26 08:35] LABS: ANION GAP 12 MMOL/L (8-16); BLOOD UREA NITROGEN 29 mg/dL (7-18); CALCIUM 8.9 mg/dL (8.5-10.1); CHLORIDE 102 mmol/L (98-107); CO2 24 mmol/L (21-32); CREATININE 0.8 mg/dL (0.55-1.3); GLUCOSE,RANDOM 104 mg/dL (74-106); MAGNESIUM 2.2 mg/dL (1.8-2.4); PHOSPHOROUS 3.5 mg/dL (2.5-4.9); POTASSIUM 3.7 mmol/L (3.5-5.1); SODIUM 138 mmol/L (136-145)
[2018-07-26] MEDS ORDERED: cefTRIAXone SODIUM 1 GM VIAL ONE (10:40)
[2018-07-26] MEDS ORDERED: DEXTROSE 5%-WATER - 50 ML IVPB ONE (10:40)
[2018-07-26] MEDS: CEFTRIAXONE 1 GM in DEXTROSE 5%-WATER - 50 ML IVPB SCH (10:42)
[2018-07-26] MEDS: METHIMAZOLE 5 MG TABLET (FP) PO SCH (10:43)
[2018-07-26] MEDS: HYDROCHLOROTHIAZIDE 12.5 MG CAPSULE (FP) PO SCH (10:43)
[2018-07-26] MEDS: TAMSULOSIN HCL 0.4 MG CAP PO SCH (10:43)
[2018-07-26] MEDS: metoPROLOL SUCCINATE 25 MG TAB.SR.24H (FP) PO SCH ×2 (10:43→21:04)
[2018-07-26] MEDS: FINASTERIDE 5 MG TABLET (FP) PO SCH (10:44)
--- NOTE | 2018-07-26 10:44 | PN ---
Progress Note (short form) - Note Progress Note: Chief Complaint: fatigue/somnolence History of Present Illness: no chest pain, palps, dizziness, lightheadedness Current Medications Generic Name Dose Route Start Last Admin Trade Name Naomi PRN Reason Stop Dose Admin Aripiprazole 5 mg 07/24/18 10:00 07/25/18 10:15 Abilify PO 5 mg DAILY [facility] Administration Enoxaparin Sodium 40 mg 07/22/18 10:00 07/25/18 10:13 Lovenox - SQ 40 mg DAILY [facility] Administration Finasteride 5 mg 07/22/18 10:00 07/25/18 10:18 Proscar - PO 5 mg DAILY [facility] Administration Hydrochlorothiazide 12.5 mg 07/22/18 10:00 07/25/18 10:13 Hctz - PO 12.5 mg DAILY [facility] Administration Ceftriaxone Sodium 1 gm/ 50 mls @ 200 mls/hr 07/22/18 10:00 07/25/18 10:12 Dextrose IVPB 200 mls/hr DAILY [facility] Administration Protocol Lamotrigine 25 mg 07/23/18 22:00 07/25/18 23:48 Lamictal - PO 25 mg BID DELMI Administration Methimazole 5 mg 07/22/18 10:00 07/25/18 10:13 Tapazole - PO 5 mg DAILY [facility] Administration Metoprolol Succinate 25 mg 07/22/18 10:00 07/25/18 22:18 Toprol Xl - PO 25 mg BID DELMI Administration Polyethylene Glycol 17 gm 07/25/18 10:00 07/25/18 22:18 Miralax (For Daily Use) - PO 17 gm BID DELMI Administration Quinapril HCl 40 mg 07/22/18 10:00 07/25/18 22:18 Accupril - PO 40 mg BID [facility]MI Administration Senna 2 tab 07/25/18 22:00 07/25/18 22:17 Senna - PO 2 tab HS [facility] Administration Tamsulosin HCl 0.4 mg 07/22/18 08:30 07/25/18 10:13 Flomax - PO 0.4 mg DAILY@0830 DEL[facility] Administration Vital Signs Vital Signs Period Temp Pulse Resp BP Sys/Braxton Pulse Ox Last 24 Hr 97.0 F-98.8 F 64-82 18-18 108-126/56-79 95 Constitutional: Yes: Well Nourished, No Distress, Calm Cardiovascular: Yes: Regular Rate and Rhythm, S1, S2. No: JVD, Gallop, Murmur Respiratory: Yes: Regular, CTA Bilaterally. No: Accessory Muscle Use, Rales, Wheezes Extremities: No: Cold Edema: No Neurological: Yes: Alert, Oriented Psychiatric: No: Agitated Assessment/Plan ECG #1: NSR with poor baseline (? tremor artifact). normal axis/intervals. no pathological q waves, no ST-T abn ECG #2: NSR with baseline wander artifact. normal intervals/axis. PVC. no pathol q waves. no ST-T abn. CXR: clear lungs/pleura bipolar disorder, incr fatigue/somnolence, visual hallucinations: -per psych, hospitalist LE swelling: -known h/o chronic edema -HCTZ stopped in rehab-->swelling increased -BNP normal, CXR clear. phys exam not c/w chf -swelling improved with stopping amlodipine and restarting HCTZ, edema now resolved abnormal ECG (normal ECG with poor baseline): -no afib -no further cardiac w/u or mgmt indicated HTN: -was on HCTZ in past, resumed here, amlodipine stopped -bp stable
[2018-07-26] MEDS: lamoTRIgine 25 MG TABLET PO SCH ×2 (10:45→21:04)
[2018-07-26] MEDS: ENOXAPARIN NA (PORCINE) 40 MG/0.4 ML DISP.SYRIN SQ SCH (10:45)
[2018-07-26] MEDS: ARIPiprazole 5 MG TABLET (FP) PO SCH (10:46)
[2018-07-26] MEDS: QUINAPRIL HCL 40 MG TABLET (FP) PO SCH ×2 (10:46→21:04)
[2018-07-26] MEDS: POLYETHYLENE GLYCOL 3350 119 GM BTL PO SCH ×2 (13:57→21:05)
--- NOTE | 2018-07-26 14:56 | PN ---
Teaching Attending Note Name of Resident: Sharad Castro ATTENDING PHYSICIAN STATEMENT I saw and evaluated the patient. I reviewed the resident's note and discussed the case with the resident. I agree with the resident's findings and plan as documented. SUBJECTIVE: Patient has no complaints. He is confused but less labile than yesterday. OBJECTIVE: Vital Signs Period Temp Pulse Resp BP Sys/Braxton Pulse Ox Last 24 Hr 97.0 F-98.8 F 64-82 18-18 108-126/56-79 95 HEART: S1S2, RRR LUNGS: Clear ABDOMEN: Soft, non-tender, non-distended, normal BS EXTREMITIES: no edema Laboratory Results - last 24 hr 07/26/18 07/26/18 06:00 06:00 WBC 8.2 RBC 4.34 Hgb 14.0 Hct 39.0 MCV 89.7 MCH 32.2 MCHC 35.9 RDW 13.3 Plt Count 219 MPV 8.8 Sodium 138 Potassium 3.7 Chloride 102 Carbon Dioxide 24 Anion Gap 12 BUN 29 H Creatinine 0.8 Creat Clearance w eGFR > 60 Random Glucose 104 Calcium 8.9 Phosphorus 3.5 Magnesium 2.2 Current Medications Generic Name Dose Route Start Last Admin Trade Name Freq PRN Reason Stop Dose Admin Aripiprazole 5 mg 07/24/18 10:00 07/26/18 10:46 Abilify PO 5 mg DAILY [facility]MI Administration Enoxaparin Sodium 40 mg 07/22/18 10:00 07/26/18 10:45 Lovenox - SQ 40 mg DAILY [facility]MI Administration Finasteride 5 mg 07/22/18 10:00 07/26/18 10:44 Proscar - PO 5 mg DAILY [facility]MI Administration Hydrochlorothiazide 12.5 mg 07/22/18 10:00 07/26/18 10:43 Hctz - PO 12.5 mg DAILY [facility]MI Administration Ceftriaxone Sodium 1 gm/ 50 mls @ 200 mls/hr 07/22/18 10:00 07/26/18 10:42 Dextrose IVPB 200 mls/hr DAILY DELMI Administration Protocol Lamotrigine 25 mg 07/23/18 22:00 07/26/18 10:45 Lamictal - PO 25 mg BID DELMI Administration Methimazole 5 mg 07/22/18 10:00 07/26/18 10:43 Tapazole - PO 5 mg DAILY DELMI Administration Metoprolol Succinate 25 mg 07/22/18 10:00 07/26/18 10:43 Toprol Xl - PO 25 mg BID DELMI Administration Polyethylene Glycol 17 gm 07/25/18 10:00 07/26/18 13:57 Miralax (For Daily Use) - PO Not Given BID DELMI Quinapril HCl 40 mg 07/22/18 10:00 07/26/18 10:46 Accupril - PO 40 mg BID DELMI Administration Senna 2 tab 07/25/18 22:00 07/25/18 22:17 Senna - PO 2 tab HS DELMI Administration Tamsulosin HCl 0.4 mg 07/22/18 08:30 07/26/18 10:43 Flomax - PO 0.4 mg DAILY@0830 [facility]MI Administration ASSESSMENT AND PLAN: This is a 78 year old man with a history of cerebral palsy, HTN, BPH, bipolar disorder who presented to the ED with weakness and hallucinations. 1. Bipolar disorder with acute ronal - Continue Lamictal, Abilify - Currently requires inpatient psychiatry 2. BPH with urinary retention, UTI - Continue ceftriaxone, Flomax, Proscar - Urine culture negative but was done after antibiotics were initiated - Has Pittman catheter - voiding trial prior to discharge to inpatient psychiatry 3. Acute sinusitis - Continue ceftriaxone 4. s/p fall - Continue PT 5. Cerebral palsy with right-sided weakness 6. HTN - Continue Accupril, HCTZ, Toprol XL - Norvasc stopped secondary to leg edema 7. Hyperthyroidism - Continue Tapazole
--- NOTE | 2018-07-26 15:02 | PN ---
Physical Exam: SUBJECTIVE: Patient seen and examined at bedside. No acute events overnight. OBJECTIVE: Vital Signs Period Temp Pulse Resp BP Sys/Braxton Pulse Ox Last 24 Hr 97.0 F-98.8 F 64-82 18-18 108-126/56-79 95 Refused Physical exam this AM Laboratory Results - last 24 hr 07/26/18 07/26/18 06:00 06:00 WBC 8.2 RBC 4.34 Hgb 14.0 Hct 39.0 MCV 89.7 MCH 32.2 MCHC 35.9 RDW 13.3 Plt Count 219 MPV 8.8 Sodium 138 Potassium 3.7 Chloride 102 Carbon Dioxide 24 Anion Gap 12 BUN 29 H Creatinine 0.8 Creat Clearance w eGFR > 60 Random Glucose 104 Calcium 8.9 Phosphorus 3.5 Magnesium 2.2 Active Medications Generic Name Dose Route Start Last Admin Trade Name Freq PRN Reason Stop Dose Admin Aripiprazole 5 mg 07/24/18 10:00 07/26/18 10:46 Abilify PO 5 mg DAILY DELMI Administration Enoxaparin Sodium 40 mg 07/22/18 10:00 07/26/18 10:45 Lovenox - SQ 40 mg DAILY DELMI Administration Finasteride 5 mg 07/22/18 10:00 07/26/18 10:44 Proscar - PO 5 mg DAILY DELMI Administration Hydrochlorothiazide 12.5 mg 07/22/18 10:00 07/26/18 10:43 Hctz - PO 12.5 mg DAILY [facility]MI Administration Ceftriaxone Sodium 1 gm/ 50 mls @ 200 mls/hr 07/22/18 10:00 07/26/18 10:42 Dextrose IVPB 200 mls/hr DAILY DELMI Administration Protocol Lamotrigine 25 mg 07/23/18 22:00 07/26/18 10:45 Lamictal - PO 25 mg BID DELMI Administration Methimazole 5 mg 07/22/18 10:00 07/26/18 10:43 Tapazole - PO 5 mg DAILY DELMI Administration Metoprolol Succinate 25 mg 07/22/18 10:00 07/26/18 10:43 Toprol Xl - PO 25 mg BID DELMI Administration Polyethylene Glycol 17 gm 07/25/18 10:00 07/26/18 13:57 Miralax (For Daily Use) - PO Not Given BID DELMI Quinapril HCl 40 mg 07/22/18 10:00 07/26/18 10:46 Accupril - PO 40 mg BID DELMI Administration Senna 2 tab 07/25/18 22:00 07/25/18 22:17 Senna - PO 2 tab HS DELMI Administration Tamsulosin HCl 0.4 mg 07/22/18 08:30 07/26/18 10:43 Flomax - PO 0.4 mg DAILY@0830 DELMI Administration ASSESSMENT/PLAN: Pt is a 78 y/o gentleman with a significant past medical history of bipolar d/o , cerebral palsy, and osteoarthritis who presented to [facility] due to altered mental status and increasing lower extremity edema. # UTI -On Ceftriaxone day 5 -Urine Cultures negative. However, Cx's taken after antibiotic treatment. Will continue ABx. May be contributing to altered mental status vs dementia vs ronal ? Dr Salinas on board. Recommends transfer to in patient psych unit- 2 PC obtained. Awaiting placement. Family prefers [facility]afer Urinary Retention May be 2/2 BPH vs UTI -GENTILE D/C'ed. TOV. Continue Tamsulosin/Finasteride -Urinalysis performed this evening with 3+ Leuk Esterase. Will Straight Cath and retest UA and UC. # Bipolar disorder/New onset Dementia - Recent episodes of hallucinations. Has not been taking lithium medication since last year - Lamictal 25 mg po BID. Abilify 5 MG PO Daily. Watch for Greg Toni's rash. -CT Head W/O contrast--> No acute pathology. Moderate diffuse cortical atrophy. Chronic small vessel ischemic changes noted in the white matter. Prominence of the ventricles, left greater than right. -Brain MRI ---> ischemic changes white matter of both cerebral hemispheres more prominent the left frontal, parietal, temporal lobe with ipsilateral dilation of the left lateral ventricle. -Fall precautions. -Physical therapy-- Walked 100 feet with minimal assistance yesterday. Refused physical therapy today, 07/26/18. - Dr Chavez(Neurology) Differential: Lewy body dementia in light of hallucinations. RPR nonreactive, B12 WNL #Lower extremity edema -Resolved. Most likely 2/2 Amlodipine. -Troponin is negative. No significant pathology on CXR - EKG shows afib, a lot of artifact. Repeat EKG's--> normal axis/intervals. no pathological q waves, no ST-T abn. Cardio on board Started HCTZ 12.5 Daily. Amlodipine stopped. Edema significantly improved -Daily weights -Cardiology on board. Consider/Stop Amlodipine in light of increased peripheral edema. FEN No Fluids Monitor Electrolytes NA Controlled Diet #DVT PPX - Lovenox 40 mg SQ q 24 hours. Dispo: [id number] to in patient psych pending bed availability. 2 PC obtained. Family requesting [facility] Visit type - Emergency Visit Emergency Visit: Yes ED Registration Date: 07/23/18 Care time: The patient presented to the Emergency Department on the above date and was hospitalized for further evaluation of their emergent condition. - New Patient This patient is new to me today: No - Critical Care Critical Care patient: No - Discharge Referral Referred to [facility] Med P.C.: No
[2018-07-26 16:33] LABS: URINE APPEARANCE CLEAR; URINE BILIRUBIN NEGATIVE (<2.0 mg/dL); URINE COLOR YELLOW; URINE GLUCOSE (UA) NEGATIVE (NEGATIVE); URINE KETONE NEGATIVE (NEGATIVE); URINE LEUK ESTERASE 3+ (NEGATIVE); URINE NITRITE NEGATIVE (NEGATIVE); URINE PROTEIN NEGATIVE (NEGATIVE); URINE UROBILINOGEN NEGATIVE mg/dL (0.2-1.0)
[2018-07-26 16:36] LABS: URINE MUCUS RARE
[2018-07-26 18:03] LABS: URINE APPEARANCE SLCLOUDY; URINE BILIRUBIN NEGATIVE (<2.0 mg/dL); URINE COLOR YELLOW; URINE GLUCOSE (UA) NEGATIVE (NEGATIVE); URINE KETONE NEGATIVE (NEGATIVE); URINE LEUK ESTERASE 1+ (NEGATIVE); URINE NITRITE NEGATIVE (NEGATIVE); URINE PROTEIN NEGATIVE (NEGATIVE); URINE UROBILINOGEN NEGATIVE mg/dL (0.2-1.0)
[2018-07-26 18:53] LABS: EPI CELLS RARE /HPF (FEW); URINE HYALINE CAST 5 /lpf; URINE MUCUS RARE
[2018-07-26] MEDS ORDERED: PT OWN MED DRAWER 7, Y5N ONE (20:52)
[2018-07-26] MEDS: SENNOSIDES 8.6MG TABLET (FP) PO SCH (21:03)
[2018-07-27 07:27] LABS: HEMATOCRIT 39.2 % (35.4-49); MCH 32.2 pg (25.7-33.7); MCHC 35.7 g/dl (32.0-35.9); MEAN CELL VOLUME 90.1 fl (80-96); MEAN PLT VOLUME 8.7 fl (7.5-11.1); PLATELET COUNT 233 K/MM3 (134-434); RBC 4.35 M/mm3 (4.00-5.60); RDW 13.6 % (11.9-15.9); WHITE BLOOD COUNT 6.5 K/mm3 (4.0-10.0)
[2018-07-27 08:06] LABS: ANION GAP 8 MMOL/L (8-16); BLOOD UREA NITROGEN 29 mg/dL (7-18); CHLORIDE 104 mmol/L (98-107); CO2 27 mmol/L (21-32); CREATININE 0.6 mg/dL (0.55-1.3); GLUCOSE,RANDOM 104 mg/dL (74-106); MAGNESIUM 2.2 mg/dL (1.8-2.4); PHOSPHOROUS 3.8 mg/dL (2.5-4.9); POTASSIUM 3.9 mmol/L (3.5-5.1); SODIUM 138 mmol/L (136-145)
[2018-07-27] MEDS: METHIMAZOLE 5 MG TABLET (FP) PO SCH (10:23)
[2018-07-27] MEDS: TAMSULOSIN HCL 0.4 MG CAP PO SCH (10:24)
[2018-07-27] MEDS: metoPROLOL SUCCINATE 25 MG TAB.SR.24H (FP) PO SCH (10:24)
[2018-07-27] MEDS: HYDROCHLOROTHIAZIDE 12.5 MG CAPSULE (FP) PO SCH (10:24)
[2018-07-27] MEDS: ENOXAPARIN NA (PORCINE) 40 MG/0.4 ML DISP.SYRIN SQ SCH (10:24)
[2018-07-27] MEDS: FINASTERIDE 5 MG TABLET (FP) PO SCH (10:24)
[2018-07-27] MEDS: ARIPiprazole 5 MG TABLET (FP) PO SCH (10:25)
[2018-07-27] MEDS: lamoTRIgine 25 MG TABLET PO SCH (10:25)
[2018-07-27] MEDS: QUINAPRIL HCL 40 MG TABLET (FP) PO SCH (10:26)
[2018-07-27] MEDS: CEFTRIAXONE 1 GM in DEXTROSE 5%-WATER - 50 ML IVPB SCH (10:27)
[2018-07-27] MEDS: POLYETHYLENE GLYCOL 3350 119 GM BTL PO SCH (10:34)
--- NOTE | 2018-07-27 12:13 | PN ---
Progress Note (short form) - Note Progress Note: Chief Complaint: fatigue/somnolence History of Present Illness: no chest pain, palps, dizziness, lightheadedness Current Medications Generic Name Dose Route Start Last Admin Trade Name Naomi PRN Reason Stop Dose Admin Aripiprazole 5 mg 07/24/18 10:00 07/27/18 10:25 Abilify PO 5 mg DAILY DELMI Administration Enoxaparin Sodium 40 mg 07/22/18 10:00 07/27/18 10:24 Lovenox - SQ 40 mg DAILY DELMI Administration Finasteride 5 mg 07/22/18 10:00 07/27/18 10:24 Proscar - PO 5 mg DAILY DELMI Administration Hydrochlorothiazide 12.5 mg 07/22/18 10:00 07/27/18 10:24 Hctz - PO 12.5 mg DAILY DELMI Administration Ceftriaxone Sodium 1 gm/ 50 mls @ 200 mls/hr 07/22/18 10:00 07/27/18 10:27 Dextrose IVPB Not Given DAILY DELMI Protocol Lamotrigine 25 mg 07/23/18 22:00 07/27/18 10:25 Lamictal - PO 25 mg BID DELMI Administration Methimazole 5 mg 07/22/18 10:00 07/27/18 10:23 Tapazole - PO 5 mg DAILY DELMI Administration Metoprolol Succinate 25 mg 07/22/18 10:00 07/27/18 10:24 Toprol Xl - PO 25 mg BID DELMI Administration Polyethylene Glycol 17 gm 07/25/18 10:00 07/27/18 10:34 Miralax (For Daily Use) - PO 17 gm BID DELMI Administration Quinapril HCl 40 mg 07/22/18 10:00 07/27/18 10:26 Accupril - PO 40 mg BID DELMI Administration Senna 2 tab 07/25/18 22:00 07/26/18 21:03 Senna - PO 2 tab HS DELMI Administration Tamsulosin HCl 0.4 mg 07/22/18 08:30 07/27/18 10:24 Flomax - PO 0.4 mg DAILY@0830 DELMI Administration Vital Signs Vital Signs Period Temp Pulse Resp BP Sys/Braxton Pulse Ox Last 24 Hr 97.4 F-98 F 64-82 18-20 117-138/58-68 95 Constitutional: Yes: Well Nourished, No Distress, Calm Cardiovascular: Yes: Regular Rate and Rhythm, S1, S2. No: JVD, Gallop, Murmur Respiratory: Yes: Regular, CTA Bilaterally. No: Accessory Muscle Use, Rales, Wheezes Extremities: No: Cold Edema: No Neurological: Yes: Alert, Oriented Psychiatric: No: Agitated Assessment/Plan ECG #1: NSR with poor baseline (? tremor artifact). normal axis/intervals. no pathological q waves, no ST-T abn ECG #2: NSR with baseline wander artifact. normal intervals/axis. PVC. no pathol q waves. no ST-T abn. CXR: clear lungs/pleura bipolar disorder, incr fatigue/somnolence, visual hallucinations: -per psych, hospitalist LE swelling: -known h/o chronic edema -HCTZ stopped in rehab-->swelling increased -BNP normal, CXR clear. phys exam not c/w chf -swelling improved with stopping amlodipine and restarting HCTZ, edema now resolved abnormal ECG (normal ECG with poor baseline): -no afib -no further cardiac w/u or mgmt indicated HTN: -was on HCTZ in past, resumed here, amlodipine stopped -bp stable cardiac briceño remains stable
--- NOTE | 2018-07-27 12:37 | PN ---
Physical Exam: SUBJECTIVE: Patient seen and examined at bedside. OBJECTIVE: Vital Signs Period Temp Pulse Resp BP Sys/Braxton Pulse Ox Last 24 Hr 97.4 F-98 F 64-82 18-20 117-138/58-68 95-97 GENERAL: Labile mood, NAD HEAD: Atraumatic, Normocephalic EYES: PERRL, extraocular movements intact, sclera anicteric, conjunctiva clear. No ptosis. ENT: Ears normal, nares patent, oropharynx clear without exudates, moist mucous membranes. NECK: Trachea midline, full range of motion, supple. LUNGS: Breath sounds equal, clear to auscultation bilaterally, no wheezes, no crackles, no accessory muscle use. HEART: Regular rate and rhythm, S1, S2 without murmur, rub or gallop. ABDOMEN: Soft, nontender, nondistended, normoactive bowel sounds, no guarding, no rebound, no hepatosplenomegaly, no masses. EXTREMITIES: 2+ pulses, warm, well-perfused, no edema. NEUROLOGICAL: Cranial nerves II through XII grossly intact. Normal speech, gait not observed. PSYCH: Normal mood, normal affect. SKIN: Warm, dry, normal turgor, no rashes or lesions noted Laboratory Results - last 24 hr 07/26/18 07/26/18 07/27/18 15:48 17:30 06:00 WBC 6.5 RBC 4.35 Hgb 14.0 Hct 39.2 MCV 90.1 MCH 32.2 MCHC 35.7 RDW 13.6 Plt Count 233 MPV 8.7 Sodium Potassium Chloride Carbon Dioxide Anion Gap BUN Creatinine Creat Clearance w eGFR Random Glucose Calcium Phosphorus Magnesium Urine Color Yellow Yellow Urine Appearance Clear Slcloudy Urine pH 5.0 5.0 Ur Specific [place] 1.016 1.019 Urine Protein Negative Negative Urine Glucose (UA) Negative Negative Urine Ketones Negative Negative Urine Blood Negative 2+ H Urine Nitrite Negative Negative Urine Bilirubin Negative Negative Urine Urobilinogen Negative Negative Ur Leukocyte Esterase 3+ H 1+ H D Urine WBC (Auto) 41 13 Urine RBC (Auto) 2 23 Ur Epithelial Cells Rare Hyaline Casts 5 Urine Mucus Rare Rare 07/27/18 06:00 WBC RBC Hgb Hct MCV MCH MCHC RDW Plt Count MPV Sodium 138 Potassium 3.9 Chloride 104 Carbon Dioxide 27 Anion Gap 8 BUN 29 H Creatinine 0.6 Creat Clearance w eGFR > 60 Random Glucose 104 Calcium 9.0 Phosphorus 3.8 Magnesium 2.2 Urine Color Urine Appearance Urine pH Ur Specific [place] Urine Protein Urine Glucose (UA) Urine Ketones Urine Blood Urine Nitrite Urine Bilirubin Urine Urobilinogen Ur Leukocyte Esterase Urine WBC (Auto) Urine RBC (Auto) Ur Epithelial Cells Hyaline Casts Urine Mucus Active Medications Generic Name Dose Route Start Last Admin Trade Name Freq PRN Reason Stop Dose Admin Aripiprazole 5 mg 07/24/18 10:00 07/27/18 10:25 Abilify PO 5 mg DAILY DELMI Administration Cefpodoxime Proxetil 100 mg 07/27/18 12:45 Vantin (Nf) - PO Q12H DELMI Enoxaparin Sodium 40 mg 07/22/18 10:00 07/27/18 10:24 Lovenox - SQ 40 mg DAILY DELMI Administration Finasteride 5 mg 07/22/18 10:00 07/27/18 10:24 Proscar - PO 5 mg DAILY DELMI Administration Hydrochlorothiazide 12.5 mg 07/22/18 10:00 07/27/18 10:24 Hctz - PO 12.5 mg DAILY DELMI Administration Ceftriaxone Sodium 1 gm/ 50 mls @ 200 mls/hr 07/22/18 10:00 07/27/18 10:27 Dextrose IVPB Not Given DAILY [facility] Protocol Lamotrigine 25 mg 07/23/18 22:00 07/27/18 10:25 Lamictal - PO 25 mg BID DELMI Administration Methimazole 5 mg 07/22/18 10:00 07/27/18 10:23 Tapazole - PO 5 mg DAILY DELMI Administration Metoprolol Succinate 25 mg 07/22/18 10:00 07/27/18 10:24 Toprol Xl - PO 25 mg BID DELMI Administration Polyethylene Glycol 17 gm 07/25/18 10:00 07/27/18 10:34 Miralax (For Daily Use) - PO 17 gm BID DELMI Administration Quinapril HCl 40 mg 07/22/18 10:00 07/27/18 10:26 Accupril - PO 40 mg BID DELMI Administration Senna 2 tab 07/25/18 22:00 07/26/18 21:03 Senna - PO 2 tab HS DELMI Administration Tamsulosin HCl 0.4 mg 07/22/18 08:30 07/27/18 10:24 Flomax - PO 0.4 mg DAILY@0830 [facility] Administration ASSESSMENT/PLAN: Ceftriaxone D/C'ed Cefpodoxime 100 mg PO BID for 2 more days
[2018-07-27] MEDS ORDERED: CEFPODOXIME PROXETIL 100 MG TABLET PO SCH (12:45)
--- NOTE | 2018-07-27 13:44 | PN ---
Teaching Attending Note Name of Resident: Sharad Castro ATTENDING PHYSICIAN STATEMENT I saw and evaluated the patient. I reviewed the resident's note and discussed the case with the resident. I agree with the resident's findings and plan as documented. SUBJECTIVE: Still emotionally labile, confused. No complaints. Intermittently tearful. OBJECTIVE: Afebrile, hemodynamically stable. Last Vital Signs Temp Pulse Resp BP Pulse Ox 98 F 68 18 138/68 97 07/27/18 10:00 07/27/18 10:00 07/27/18 10:00 07/27/18 10:00 07/27/18 09:00 Neuro - AAO x 2. HEENT - Atraumatic, normocephalic. Heart - S1, S2, RRR Lungs - clear to auscultation Abdomen - soft, non-tender. Bowel Sounds normal. Extremities - no edema. No calf tenderness. Laboratory Results - last 24 hr 07/26/18 07/26/18 07/27/18 15:48 17:30 06:00 WBC 6.5 RBC 4.35 Hgb 14.0 Hct 39.2 MCV 90.1 MCH 32.2 MCHC 35.7 RDW 13.6 Plt Count 233 MPV 8.7 Sodium Potassium Chloride Carbon Dioxide Anion Gap BUN Creatinine Creat Clearance w eGFR Random Glucose Calcium Phosphorus Magnesium Urine Color Yellow Yellow Urine Appearance Clear Slcloudy Urine pH 5.0 5.0 Ur Specific [place] 1.016 1.019 Urine Protein Negative Negative Urine Glucose (UA) Negative Negative Urine Ketones Negative Negative Urine Blood Negative 2+ H Urine Nitrite Negative Negative Urine Bilirubin Negative Negative Urine Urobilinogen Negative Negative Ur Leukocyte Esterase 3+ H 1+ H D Urine WBC (Auto) 41 13 Urine RBC (Auto) 2 23 Ur Epithelial Cells Rare Hyaline Casts 5 Urine Mucus Rare Rare 07/27/18 06:00 WBC RBC Hgb Hct MCV MCH MCHC RDW Plt Count MPV Sodium 138 Potassium 3.9 Chloride 104 Carbon Dioxide 27 Anion Gap 8 BUN 29 H Creatinine 0.6 Creat Clearance w eGFR > 60 Random Glucose 104 Calcium 9.0 Phosphorus 3.8 Magnesium 2.2 Urine Color Urine Appearance Urine pH Ur Specific [place] Urine Protein Urine Glucose (UA) Urine Ketones Urine Blood Urine Nitrite Urine Bilirubin Urine Urobilinogen Ur Leukocyte Esterase Urine WBC (Auto) Urine RBC (Auto) Ur Epithelial Cells Hyaline Casts Urine Mucus Current Medications Generic Name Dose Route Start Last Admin Trade Name Naomi PRN Reason Stop Dose Admin Aripiprazole 5 mg 07/24/18 10:00 07/27/18 10:25 Abilify PO 5 mg DAILY DELMI Administration Cefpodoxime Proxetil 100 mg 07/27/18 12:45 Vantin (Nf) - PO Q12H DELMI Enoxaparin Sodium 40 mg 07/22/18 10:00 07/27/18 10:24 Lovenox - SQ 40 mg DAILY DELMI Administration Finasteride 5 mg 07/22/18 10:00 07/27/18 10:24 Proscar - PO 5 mg DAILY DELMI Administration Hydrochlorothiazide 12.5 mg 07/22/18 10:00 07/27/18 10:24 Hctz - PO 12.5 mg DAILY DELMI Administration Ceftriaxone Sodium 1 gm/ 50 mls @ 200 mls/hr 07/22/18 10:00 07/27/18 10:27 Dextrose IVPB Not Given DAILY [facility] Protocol Lamotrigine 25 mg 07/23/18 22:00 07/27/18 10:25 Lamictal - PO 25 mg BID DELMI Administration Methimazole 5 mg 07/22/18 10:00 07/27/18 10:23 Tapazole - PO 5 mg DAILY DELMI Administration Metoprolol Succinate 25 mg 07/22/18 10:00 07/27/18 10:24 Toprol Xl - PO 25 mg BID DELMI Administration Polyethylene Glycol 17 gm 07/25/18 10:00 07/27/18 10:34 Miralax (For Daily Use) - PO 17 gm BID DELMI Administration Quinapril HCl 40 mg 07/22/18 10:00 07/27/18 10:26 Accupril - PO 40 mg BID DELMI Administration Senna 2 tab 07/25/18 22:00 07/26/18 21:03 Senna - PO 2 tab HS DELMI Administration Tamsulosin HCl 0.4 mg 07/22/18 08:30 07/27/18 10:24 Flomax - PO 0.4 mg DAILY@0830 [facility] Administration ASSESSMENT AND PLAN: 78 year old male with history of cerebral palsy, HTN, BPH, bipolar disorder, who presented to the ED with weakness and hallucinations. 1. Bipolar disorder with Acute ronal Evaluated by Psych - Lamictal dose increased and started on Abilify. For further Psych and Neuro eval and follow up. Likely requires in-patient Psych. 2. BPH with urinary retention - resolved. Pittman discontinued. Patient voiding spontaneously. Continue Flomax, Proscar 3. UTI Urine culture negative but was done after antibiotics were initiated Completed 5 days of IV Ceftriaxone. For 2 additional days of oral Cefpodoxime. 3. Acute sinusitis - Day 6 cephalosporin therapy. 4. Cerebral palsy with right-sided weakness - stable. PT ongoing. 5. HTN - Continue Accupril, HCTZ, Toprol XL - Norvasc stopped secondary to leg edema 7. Hyperthyroidism - Continue Methimazole. 8. Chronic LE edema - resolved. Likley secondary to Norvasc - discontinued in favor of HCTZ. BNP normal, CXR clear - no evidence of CHF as per Cardiology. No further Cardiac work-up recommended. DVT Px - Lovenox SQ
[2018-07-27 15:24] VITALS: TEMP 98.2
--- NOTE | 2018-07-27 17:46 | DS ---
Physical Exam: SUBJECTIVE: Patient seen and examined at bedside. No acute events overnight. Family at bedside. OBJECTIVE: Vital Signs Period Temp Pulse Resp BP Sys/Braxton Pulse Ox Last 24 Hr 97.7 F-98.2 F 64-82 18-20 117-138/66-68 95-97 PHYSICAL EXAM GENERAL: Labile Mood, Speech coherent, NAD HEAD: Atraumatic, normocephalic EYES: EOMI ENT: MMM NECK: Supple LUNGS:CTA B/L HEART: RRR No MRG appreciated ABDOMEN: NDNT No HSM EXTREMITIES: No pedel edema, right arm inverted and adducted NEUROLOGICAL: Right upper extremity weakness, Strength 5/5 b/l lower extremities and L arm. SILT throughout. PSYCH: Normal mood, normal affect. SKIN: No rashes or lesions appreciated LABS Laboratory Results - last 24 hr 07/26/18 07/27/18 07/27/18 17:30 06:00 06:00 WBC 6.5 RBC 4.35 Hgb 14.0 Hct 39.2 MCV 90.1 MCH 32.2 MCHC 35.7 RDW 13.6 Plt Count 233 MPV 8.7 Sodium 138 Potassium 3.9 Chloride 104 Carbon Dioxide 27 Anion Gap 8 BUN 29 H Creatinine 0.6 Creat Clearance w eGFR > 60 Random Glucose 104 Calcium 9.0 Phosphorus 3.8 Magnesium 2.2 Urine Color Yellow Urine Appearance Slcloudy Urine pH 5.0 Ur Specific [place] 1.019 Urine Protein Negative Urine Glucose (UA) Negative Urine Ketones Negative Urine Blood 2+ H Urine Nitrite Negative Urine Bilirubin Negative Urine Urobilinogen Negative Ur Leukocyte Esterase 1+ H D Urine WBC (Auto) 13 Urine RBC (Auto) 23 Ur Epithelial Cells Rare Hyaline Casts 5 Urine Mucus Rare HOSPITAL COURSE: Date of Admission:07/23/18 Pt is a 78 y/o gentleman with a significant past medical history of bipolar d/o , cerebral palsy, and osteoarthritis who presented to [facility] due to altered mental status, decreased energy, and increasing lower extremity edema. Routine labs were performed which revealed elevated Creatine Kinase and CK-MB. These values ultimately returned to WNL after conservative treatment with I.V fluids. Furthermore, pt's lower extremities were noticeably edematous. A Duplex venous ultrasound was performed which did not reveal any acute pathology or Deep venous thrombosis. Cardiology was consulted who believed pt's clinical status did not correlate with CHF, as BNP was WNL and and chest XRAY was clear. ECHO was cancelled. It was ultimately decided to switch pt's amlodipine to HCTZ as amlodipine was a deferential for pt's lower extremity edema and to add Metoprolol as pt's initial EKG was suspicious for atrial fibrillation. Pt's lower extremity edema ultimately resided after medication change. Furthermore, pt also was noted to have a UTI with a 2+ leuk esterase. Pt was treated with Ceftriaxone 1 gm for 5 days and then switched to cefpodoxime for 2 more days. Pt remained on Ceftriaxone for 5 days due to his urine culture being negative ( Cultures drawn after ABx given) Furthermore, pt underwent a CT of Head w/o contrast (no acute pathology. Moderate diffuse cortical atrophy. Chronic small vessel ischemic changes noted in the white matter. Prominence of the ventricles , left greater than right.) Pt also underwent an MRI of his brain (ischemic changes white matter of both cerebral hemispheres more prominent the left frontal, parietal, temporal lobe with ipsilateral dilation of the left lateral ventricle.) During hospital stay, pt was noted to be agitated and hallucinating. Psychiatry increased pt's lamictal to 25 mg bid and also placed pt on abilify 5 mg po daily. Psychiatry recommended an inpatient psychiatric unit for pt. Pt's family were keen on pt only going to [facility]iatric unit otherwise they would bring patient there themselves. Personally spoke with Dr Salinas and he stated that 2 PC is null after a 48 hour period and he also clears patient for discharge from psychiatric perspective. Date of Discharge: 07/27/18 Minutes to complete discharge: 35 Discharge Summary Reason For Visit: ELEVATED CK-MB LEVEL;FATIGUE Current Active Problems Dementia (Acute) Condition: Improved - Instructions Diet, Activity, Other Instructions: You were treated in the hospital for increased lower extremity swelling, hallucinations, and altered mental status. You were found to have a urinary tract infection during your hospital stay. You will be sent home on antibiotics. Please take a dose tonight (100 mg) and TWO doses tomorrow, 07/28/18. This will complete a 7 day treatment. While you were in the hospital, your Lamictal (Lamotrigene) was increased from 25 mg Daily to 25 Mg TWICE per day. Please continue this dosage as recommended by the psychiatrist. If you notice any rash developing, STOP this medication immediately and call 911 and go to the Emergency Room. You were also started on Abilify 5 mg Daily. Please continue this medication as prescribed You were restarted on Hydrochlorothiazide due to your leg swelling. Your Norvasc (Amlodipine) was Discontinued. Please continue to take your Hydrochlorathiazide as prescribed. You were also started on Metoprolol 25 MG TWICE per day. Please continue to take this medication as prescribed Please see the following physicians in 1 week: Dr Harvey, your primary care physician Dr Salinas or your personal Psychiatrist Dr Chavez, Neurologist Referrals have been provided for you in discharge papers. Please return to the emergency department immediately with any new or worsening symptoms or concerns. Please follow up with your primary care physician within 72 hours. Please see your psychiatrist this week Referrals: Dimitry Harvey MD [Primary Care Provider] - 1 Week Hank Chavez MD [Staff Physician] - 1 Week Grace Sailnas MD [Staff Physician] - 1 Week Disposition: HOME - Home Medications Comprehensive Discharge Medication List: Ambulatory Orders Quinapril HCl [Accupril -] 40 mg PO BID 03/28/16 Finasteride 5 mg PO DAILY 07/21/18 Methimazole 5 mg PO DAILY 07/21/18 Tamsulosin HCl 0.4 mg PO DAILY 07/21/18 Aripiprazole [Abilify -] 5 mg PO DAILY #30 tablet 07/27/18 Cefpodoxime Proxetil [Vantin -] 100 mg PO Q12H #3 tablet 07/27/18 Hydrochlorothiazide [Hctz -] 12.5 mg PO DAILY #30 cap 07/27/18 Lamotrigine [Lamictal -] 25 mg PO BID #60 tablet 07/27/18 Metoprolol Succinate [Toprol XL -] 25 mg PO BID #60 tab.sr.24h 07/27/18 Polyethylene Glycol 3350 [Miralax 119 gm Btl -] 17 gm PO BID bottle 07/27/18 Sennosides [Senna -] 2 tab PO HS tablet 07/27/18 This patient is new to me today: No Emergency Visit: Yes ED Registration Date: 07/23/18 Care time: The patient presented to the Emergency Department on the above date and was hospitalized for further evaluation of their emergent condition. Critical Care patient: No - Discharge Referral Referred to [facility] Med P.C.: No
[2018-07-27 17:55] VITALS: BP 123/67; PULSE 81
== END 2018-07-27 18:32 | disposition home or self-care (01) | DRG 885 ==
LOC: JER 19:54 → JERBED 23:18 → J8W 07-22 10:11 → OBSVTOIN 07-23 14:22
PROVIDERS: ADMIT Internal Medicine
DX: F30.9 Manic episode, unspecified (principal); G93.41 Metabolic encephalopathy; N39.0 Urinary tract infection, site not specified; G81.94 Hemiplegia, unspecified affecting left nondominant side; F02.81 Dementia in other diseases classified elsewhere, unspecified severity, with behavioral disturbance; R53.83 Other fatigue; M19.90 Unspecified osteoarthritis, unspecified site; G80.9 Cerebral palsy, unspecified; R26.9 Unspecified abnormalities of gait and mobility; G31.83 Neurocognitive disorder with Lewy bodies; R62.7 Adult failure to thrive; I10 Essential (primary) hypertension; J01.90 Acute sinusitis, unspecified; G47.33 Obstructive sleep apnea (adult) (pediatric); R44.1 Visual hallucinations; R94.31 Abnormal electrocardiogram [ECG] [EKG]; N40.0 Benign prostatic hyperplasia without lower urinary tract symptoms; R33.9 Retention of urine, unspecified; R60.0 Localized edema; T46.1X5A Adverse effect of calcium-channel blockers, initial encounter; E05.90 Thyrotoxicosis, unspecified without thyrotoxic crisis or storm; W18.30XA Fall on same level, unspecified, initial encounter; Z96.652 Presence of left artificial knee joint; Z87.891 Personal history of nicotine dependence
CPT/HCPCS: 36415; 70450-TC; 70551-TC; 71045-TC-FY; 80048; 80053; 80061; 81003; 81015; 82550; 82553; 82607; 83721; 83735; 83880; 84100; 84443; 84484; 85025; 85027; 85610; 85730; 86593; 87086; 93005; 93010; 93970-TC; 97116-GP; 97161-GP; 99285-25; G0378